=== PATIENT | male | born 1995 | race African-American/Black ===

== ENCOUNTER 2017-01-04 20:35 | Emergency (ER) | payer OTHER ==
[2017-01-04 21:00] VITALS: TEMP 96.9
[2017-01-04] MEDS ORDERED: IBUPROFEN 800 MG TAB PO STA (22:30)
[2017-01-04] MEDS ORDERED: SENNOSIDES-DOCUSATE SODIUM 1 EACH TAB PO STA (22:30)
[2017-01-04] MEDS ORDERED: DICYCLOMINE 10 MG/ML 2 ML AMP IM STA (22:30)
[2017-01-04] MEDS ORDERED: GLYCERIN ADULT SUPPOSITORY 1 EACH RECTAL STA (22:30)
[2017-01-04] MEDS ORDERED: MAGNESIUM CITRATE 296 ML BOTTLE PO ONE (22:30)
--- NOTE | 2017-01-04 22:50 | ED ---
General Adult HPI - General Chief complaint: Abdominal Pain Stated complaint: med reaction/comstipation/back pain Time Seen by Provider: 01/04/17 22:24 Source: patient, RN notes reviewed, old records reviewed Mode of arrival: ambulatory Limitations: no limitations - History of Present Illness Initial comments: This is a 21-year-old male ER for evaluation I am bowel pain flank pain epigastric abdominal pain. No nausea or vomiting. No diarrhea, bubble reassuringly history of constipation. Patient is uncemented psychiatric medications. Has a bowel movements. Usually has issues with constipation. Is on no bowel regimen at this time - Related Data Home Medications Medication Instructions Recorded Confirmed FLUoxetine HCL [PROzac] 10 mg PO DAILY 02/07/16 01/04/17 FLUoxetine HCL [PROzac] 20 mg PO DAILY 02/07/16 01/04/17 LORazepam [Ativan] 0.5 mg PO HS 02/07/16 01/04/17 LORazepam [Ativan] 0.5 mg PO QAM 02/07/16 01/04/17 Loratadine 10 mg PO DAILY 02/07/16 01/04/17 cloNIDine HCL [Catapres] 0.1 mg PO HS 02/07/16 01/04/17 guanFACINE HCL [Intuniv] 1 mg PO BID 02/07/16 01/04/17 risperiDONE 0.25 mg PO 01/04/17 Allergies Allergy/AdvReac Type Severity Reaction Status Date / Time No Known Allergies Allergy Verified 02/07/16 11:03 Review of Systems ROS Statement: Those systems with pertinent positive or pertinent negative responses have been documented in the HPI. ROS Other: All systems not noted in ROS Statement are negative. Past Medical History Additional Past Medical History / Comment(s): CP, developmentally delayed History of Any Multi-Drug Resistant Organisms: Unobtainable Past Surgical History: Unable to Obtain Past Psychological History: Unable to Obtain Smoking Status: Unknown if ever smoked Past Alcohol Use History: Unable to Obtain Past Drug Use History: Unable to Obtain General Exam Limitations: no limitations General appearance: alert, in no apparent distress Head exam: Present: atraumatic, normocephalic, normal inspection Eye exam: Present: normal appearance, PERRL, EOMI. Absent: scleral icterus, conjunctival injection, periorbital swelling ENT exam: Present: normal exam, mucous membranes moist Neck exam: Present: normal inspection. Absent: tenderness, meningismus, lymphadenopathy Respiratory exam: Present: normal lung sounds bilaterally. Absent: respiratory distress, wheezes, rales, rhonchi, stridor Cardiovascular Exam: Present: regular rate, normal rhythm, normal heart sounds. Absent: systolic murmur, diastolic murmur, rubs, gallop, clicks GI/Abdominal exam: Present: soft, normal bowel sounds. Absent: distended, tenderness, guarding, rebound, rigid Extremities exam: Present: normal inspection, full ROM, normal capillary refill. Absent: tenderness, pedal edema, joint swelling, calf tenderness Back exam: Present: normal inspection Neurological exam: Present: alert, oriented X3, CN II-XII intact Psychiatric exam: Present: normal affect, normal mood Skin exam: Present: warm, dry, intact, normal color. Absent: rash Course Vital Signs 01/04/17 20:56 Temperature 96.9 F L Pulse Rate 67 Respiratory 18 Rate Blood Pressure 111/63 O2 Sat by Pulse 100 Oximetry - Reevaluation(s) Reevaluation #1: 01/04/17 22:49 Patient given adequate follow regimen, no acute distress, no abdominal tenderness Medical Decision Making - Medical Decision Making 21 middle ear with extensive stool Berdan, constipation, will discharge all with bowel regimen - Radiology Data Radiology results: report reviewed (X-ray abdominal series with chest, negative) , image reviewed Disposition Clinical Impression: Constipation, Abdominal pain Disposition: HOME SELF-CARE Condition: Good Instructions: Constipation (ED) Referrals: Sandoval Murphy MD [Primary Care Provider] - 1-2 days
--- NOTE | 2017-01-04 23:09 | XR ---
EXAM: XR Abdomen Complete With XR Chest CLINICAL HISTORY: Reason: LT side ABD pain and constipation. Last bowel movement was yesterday. TECHNIQUE: Frontal view of the chest, frontal view of the abdomen/pelvis and upright view of the abdomen. COMPARISON: None available FINDINGS: Lungs/pleura: Normal. No focal consolidation. No pleural effusion or pneumothorax. Heart/mediastinum: Normal. No cardiomegaly. Soft tissues: Presumed phlebolith projected over the left pelvis. Bones: No acute fracture. Abdomen: Nonobstructive bowel gas pattern. Moderate stool, most prominent in the right colon and transverse colon. Stomach is also distended with ingested material. No free air. IMPRESSION: 1. No acute cardiopulmonary abnormality. 2. Moderate stool, predominantly in the right colon and transverse colon. Nonobstructive bowel gas pattern. No free air.
[2017-01-04 23:32] VITALS: BP 99/55; PULSE 77; RESP 16
== END 2017-01-04 23:31 | disposition home or self-care (01) ==
LOC: EC 20:35
DX: R10.13 Epigastric pain (principal); K59.00 Constipation, unspecified; Z79.899 Other long term (current) drug therapy
CPT/HCPCS: 99284; 96372; 74022; J0500

== ENCOUNTER 2017-01-24 18:44 | Emergency (ER) | payer OTHER ==
[2017-01-24] MEDS ORDERED: DOCUSATE 283 MG/5 ML ENEMA RECTAL STA (19:14)
[2017-01-24] MEDS ORDERED: MAGNESIUM CITRATE 296 ML BOTTLE PO ONE (19:15)
--- NOTE | 2017-01-24 19:30 | ED ---
Abdominal Pain HPI - General Chief Complaint: Abdominal Pain Stated Complaint: constipation Time Seen by Provider: 01/24/17 19:08 Source: patient, RN notes reviewed, old records reviewed Mode of arrival: ambulatory Limitations: no limitations - History of Present Illness Initial Comments: this is a 21-year-old male presents emergency Department chief complaint constipation. Patient reports that he has not had a normal bowel movement in over a month. He was seen in the emergency department on 86 and given an enema at that time. Patient reports that since then he has not had very many bowel movements. Patient states that he is been trying to use MiraLAX but he is discontinue using it was not helping. Patient states that he does live at [facility]. He has a history of cerebral palsy, denies a specific fever or chills or of vomiting. Patient states that he has no specific abdominal pain but his abdomen feels very hard. Patient states no history of abdominal surgeries. - Related Data Home Medications Medication Instructions Recorded Confirmed FLUoxetine HCL [PROzac] 30 mg PO QAM@0800 01/04/17 01/24/17 LORazepam [Ativan] 0.5 mg PO BID@0800,2100 01/04/17 01/24/17 cloNIDine HCL [Catapres] 0.2 mg PO HS@2100 01/04/17 01/24/17 guanFACINE [Tenex] 1 mg PO BID@0800,1400 01/04/17 01/24/17 risperiDONE [RisperDAL] 2 mg PO BID@0800,2100 01/04/17 01/24/17 Allergies Allergy/AdvReac Type Severity Reaction Status Date / Time No Known Allergies Allergy Verified 01/24/17 19:43 Review of Systems ROS Statement: Those systems with pertinent positive or pertinent negative responses have been documented in the HPI. ROS Other: All systems not noted in ROS Statement are negative. Past Medical History Additional Past Medical History / Comment(s): CP, developmentally delayed History of Any Multi-Drug Resistant Organisms: None Reported Past Surgical History: Unable to Obtain Past Psychological History: No Psychological Hx Reported Smoking Status: Never smoker Past Alcohol Use History: None Reported Past Drug Use History: None Reported General Exam - General Exam Comments Initial Comments: well-appearing 21-year-old male. No acute distress. Limitations: no limitations General appearance: alert, in no apparent distress Head exam: Present: atraumatic, normocephalic, normal inspection Eye exam: Present: normal appearance, PERRL, EOMI. Absent: scleral icterus, conjunctival injection, periorbital swelling ENT exam: Present: normal exam, mucous membranes moist Neck exam: Present: normal inspection. Absent: tenderness, meningismus, lymphadenopathy Respiratory exam: Present: normal lung sounds bilaterally. Absent: respiratory distress, wheezes, rales, rhonchi, stridor Cardiovascular Exam: Present: regular rate, normal rhythm, normal heart sounds. Absent: systolic murmur, diastolic murmur, rubs, gallop, clicks GI/Abdominal exam: Present: soft, normal bowel sounds. Absent: distended, guarding, rebound, rigid Extremities exam: Present: normal inspection, full ROM, normal capillary refill. Absent: tenderness, pedal edema, joint swelling, calf tenderness Back exam: Present: normal inspection, full ROM Neurological exam: Present: alert, oriented X3, CN II-XII intact Psychiatric exam: Present: normal affect, normal mood Skin exam: Present: warm, dry, intact, normal color. Absent: rash Course Vital Signs 01/24/17 19:04 Temperature 98.2 F Pulse Rate 108 H Respiratory 20 Rate Blood Pressure 145/74 O2 Sat by Pulse 96 Oximetry Medical Decision Making - Medical Decision Making 21-year-old male chief complaint of constipation patient reports he has not had a bowel movement in one month. Patient's x-rays show significant stool burn. No specific abdominal tenderness. Patient will be given an soap sudsenema. Patient will be discharged home afterwards.patient be given a bottle magnesium citrate to go home with for further episode of constipation. - Radiology Data Radiology results: report reviewed Nonobstructive bowel gas pattern with moderate amount of retained colonic stool and gastric stasis. Disposition Clinical Impression: Constipation Disposition: HOME SELF-CARE Condition: Good Instructions: Constipation in Children (ED) Additional Instructions: patient instructed take the magnesium citrate bottle is negative for further episodes of constipation. Follow-up with your primary care provider regards to frequent episodes of constipation. Patient is have a diet high in fiber, and increase her fluid intake. Return to the emergency department if any alarming signs or symptoms occur. Referrals: Sandoval Murphy MD [Primary Care Provider] - 1-2 days Time of Disposition: 19:45
--- NOTE | 2017-01-24 19:41 | XR ---
EXAMINATION TYPE: XR abdomen 2V DATE OF EXAM: 01/24/2017 COMPARISON: NONE HISTORY: Constipation and abdominal pain TECHNIQUE: Upright and supine abdominal radiographs were obtained. FINDINGS: No evidence of pneumoperitoneum on the upright exam. No air-fluid levels are seen within th e upright exam. Stomach is distended with evidence of gastrectasis. Moderate amount of retained stool is seen throughout the colon. Colon is nondilated nor small bowel. There is a slight S-shaped scolio tic curvature of the thoracolumbar spine. IMPRESSION: 1. Nonobstructive bowel gas pattern with moderate amount of retained colonic stool and gastrectasis.
[2017-01-24 20:07] VITALS: BP 139/72; PULSE 92; RESP 18; TEMP 98.7
== END 2017-01-24 20:22 | disposition home or self-care (01) ==
LOC: EC 18:44
DX: K59.00 Constipation, unspecified (principal); Z79.899 Other long term (current) drug therapy
CPT/HCPCS: 74020; 99284

== ENCOUNTER 2017-03-24 15:27 | Emergency (ER) | payer OTHER ==
--- NOTE | 2017-03-24 16:00 | ED ---
General Adult HPI - General Chief complaint: Extremity Problem,Nontraumatic Stated complaint: Leg Pain Time Seen by Provider: 03/24/17 15:52 Source: patient, RN notes reviewed Mode of arrival: ambulatory Limitations: no limitations - History of Present Illness Initial comments: 21-year-old male presents to the emergency department with a chief complaint of right leg pain. Patient states that his leg chronically on the outside of the right leg. Worse with walking. Patient states he saw his doctor about a few years ago in the never had anything about it. They state that he was concerned because he continues pains without maybe we could find out why. He denies any calf pain. Denies any swelling. He is able to ambulate. Worse when he puts a lot of pressure his heel. There were concerned due to the continued symptoms so they thought they should be evaluated.Patient denies any recent fever, chills , shortness of breath, chest pain, back pain, abdominal pain, nausea vomiting, numbness or tingling, dysuria or hematuria, constipation or diarrhea, headaches or visual changes, or any other current symptoms. - Related Data Home Medications Medication Instructions Recorded Confirmed LORazepam [Ativan] 0.5 mg PO BID@0800,2100 01/04/17 03/24/17 cloNIDine HCL [Catapres] 0.2 mg PO HS@2100 01/04/17 03/24/17 guanFACINE [Tenex] 1 mg PO BID@0800,1400 01/04/17 03/24/17 risperiDONE [RisperDAL] 2 mg PO BID@0800,2100 01/04/17 03/24/17 FLUoxetine HCL [PROzac] 20 mg PO QAM@0800 01/24/17 03/24/17 Allergies Allergy/AdvReac Type Severity Reaction Status Date / Time No Known Allergies Allergy Verified 03/24/17 15:32 Review of Systems ROS Statement: Those systems with pertinent positive or pertinent negative responses have been documented in the HPI. ROS Other: All systems not noted in ROS Statement are negative. Past Medical History Additional Past Medical History / Comment(s): CP, developmentally delayed History of Any Multi-Drug Resistant Organisms: None Reported Past Surgical History: Unable to Obtain Past Psychological History: No Psychological Hx Reported Smoking Status: Never smoker Past Alcohol Use History: None Reported Past Drug Use History: None Reported General Exam - General Exam Comments Initial Comments: General: The patient is awake and alert, in no distress, and does not appear acutely ill. Neck: The neck is supple, there is no tenderness. Cardiovascular: There is a regular rate and rhythm. No murmur, rub or gallop is appreciated. Respiratory: Lungs are clear to auscultation, respirations are non-labored, breath sounds are equal. No wheezes, stridor, rales, or rhonchi. Musculoskeletal: sensation intact full Range of motion of right hip right knee and right ankle. Patient does have some tenderness along the lateral aspect of the right leg. Frontal motion of right knee and right ankle. No swelling negative Homans sign. 2+ pulses. Neurological: CN II-XII intact, There are no obvious motor or sensory deficits. Coordination appears grossly intact. Speech is normal. Skin: Skin is warm and dry and no rashes or lesions are noted. Psychiatric: Normal mood and affect. Limitations: no limitations Course Vital Signs 03/24/17 15:29 Temperature 98.1 F Pulse Rate 85 Respiratory 20 Rate Blood Pressure 112/72 O2 Sat by Pulse 99 Oximetry Medical Decision Making - Medical Decision Making 19-year-old male presents emergency room chief complaint of right leg pain. This time patient's x-rays reviewed and negative. We discussed most likely muscle type pain. We did discuss care of this. Discussed follow-up return parameters all his questions. They state Qamar is given plan. All questions have been answered. He'll be discharged. - Radiology Data Radiology results: report reviewed, image reviewed Disposition Clinical Impression: Right leg pain Disposition: HOME SELF-CARE Condition: Stable Instructions: Leg Pain (ED) Additional Instructions: Please use medication as discussed. Please follow up with family doctor if symptoms have not improved over the next two days. Please return to the emergency room if your symptoms increase or worsen or for any other concerns. use Tylenol for the pain as needed. Referrals: Estevan Tijerina MD [STAFF PHYSICIAN] - 1-2 days Time of Disposition: 16:41
--- NOTE | 2017-03-24 16:26 | XR ---
EXAMINATION TYPE: XR tibia fibula RT DATE OF EXAM: 03/24/2017 COMPARISON: NONE HISTORY: Pain TECHNIQUE: 2 view right tibia and fibula FINDINGS: No acute fractures are evident. Joint spaces appear preserved. There is some mild thickenin g of the cortex of the medial distal diaphyseal fibula. 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 IMPRESSION: 1. No acute osseous abnormality.
[2017-03-24 16:54] VITALS: BP 130/60; PULSE 80; RESP 18; TEMP 98.2
== END 2017-03-24 16:53 | disposition home or self-care (01) ==
LOC: EC 15:27
DX: M79.601 Pain in right arm (principal); Z79.899 Other long term (current) drug therapy
CPT/HCPCS: 99283

== ENCOUNTER 2017-06-06 03:58 | Emergency (ER) | payer OTHER ==
[2017-06-06] MEDS ORDERED: LORazepam 1 MG TAB PO STA (04:03)
[2017-06-06] MEDS ORDERED: diphenhydrAMINE 25 MG CAP PO STA (04:03)
[2017-06-06] MEDS ORDERED: ONDANSETRON 4 MG TAB PO STA (04:03)
[2017-06-06 04:14] VITALS: BP 153/89; PULSE 98; RESP 19; TEMP 99.1
--- NOTE | 2017-06-06 05:20 | ED ---
General Adult HPI - General Chief complaint: Dizziness Stated complaint: muscle tremors Time Seen by Provider: 06/06/17 04:00 Source: EMS, RN notes reviewed, old records reviewed Mode of arrival: EMS Limitations: no limitations - History of Present Illness Initial comments: This is a 19-year-old male to the ER for evaluation. Patient is ER for evaluation of possible overdose of Extenzel injection of medication. Patient did stop a gas station takes extends medication 2. Dosage and boxes 1, patient did not drink any water with this. Patient denies any other complaints. States he's been uncontrollable shaking. Denies any pain - Related Data Home Medications Medication Instructions Recorded Confirmed LORazepam [Ativan] 0.5 mg PO BID@0800,2100 01/04/17 05/27/17 cloNIDine HCL [Catapres] 0.2 mg PO HS@2100 01/04/17 05/27/17 guanFACINE [Tenex] 1 mg PO DAILY@1400 01/04/17 05/27/17 risperiDONE [RisperDAL] 2 mg PO BID@0800,2100 01/04/17 05/27/17 FLUoxetine HCL [PROzac] 20 mg PO QAM@0800 01/24/17 05/27/17 Ergocalciferol [Vitamin D2] 50,000 unit PO Q14D 05/27/17 05/27/17 FLUoxetine HCL [PROzac] 10 mg PO QAM@0800 05/27/17 05/27/17 Multivitamins, Thera [Multivitamin 1 tab PO QAM 05/27/17 05/27/17 (formulary)] Polyethylene Glycol 3350 [Miralax] 17 gm PO DAILY@1400 05/27/17 05/27/17 guanFACINE [Tenex] 2 mg PO DAILY@0800 05/27/17 05/27/17 Allergies Allergy/AdvReac Type Severity Reaction Status Date / Time No Known Allergies Allergy Verified 05/27/17 23:26 Review of Systems ROS Statement: Those systems with pertinent positive or pertinent negative responses have been documented in the HPI. ROS Other: All systems not noted in ROS Statement are negative. Past Medical History Additional Past Medical History / Comment(s): CP, developmentally delayed History of Any Multi-Drug Resistant Organisms: None Reported Past Surgical History: Unable to Obtain Past Psychological History: No Psychological Hx Reported Smoking Status: Never smoker Past Alcohol Use History: None Reported Past Drug Use History: None Reported General Exam Limitations: no limitations General appearance: alert, in no apparent distress, anxious Head exam: Present: atraumatic, normocephalic, normal inspection Eye exam: Present: normal appearance, PERRL, EOMI. Absent: scleral icterus, conjunctival injection, periorbital swelling ENT exam: Present: normal exam, mucous membranes moist Neck exam: Present: normal inspection. Absent: tenderness, meningismus, lymphadenopathy Respiratory exam: Present: normal lung sounds bilaterally. Absent: respiratory distress, wheezes, rales, rhonchi, stridor Cardiovascular Exam: Present: regular rate, normal rhythm, normal heart sounds. Absent: systolic murmur, diastolic murmur, rubs, gallop, clicks GI/Abdominal exam: Present: soft, normal bowel sounds. Absent: distended, tenderness, guarding, rebound, rigid Extremities exam: Present: normal inspection, full ROM, normal capillary refill. Absent: tenderness, pedal edema, joint swelling, calf tenderness Back exam: Present: normal inspection Neurological exam: Present: alert, oriented X3, CN II-XII intact Psychiatric exam: Present: normal affect, normal mood Skin exam: Present: warm, dry, intact, normal color. Absent: rash Course Vital Signs 06/06/17 04:03 Temperature 99.1 F Pulse Rate 98 Respiratory 19 Rate Blood Pressure 153/89 O2 Sat by Pulse 95 Oximetry - Reevaluation(s) Reevaluation #1: 06/06/17 05:19 Patient's symptoms are much improved Medical Decision Making - Medical Decision Making 21 male to ER with accidental medication ingestion, patient to as opposed to one extends medications. Patient was shaking upon arrival to ER this time his symptoms are resolving can be discharged home Disposition Clinical Impression: Accidental medication overdose Disposition: HOME SELF-CARE Condition: Good Instructions: Adult Overdose (ED) Referrals: None,Stated [Primary Care Provider] - 1-2 days
== END 2017-06-06 06:07 | disposition home or self-care (01) ==
LOC: EC 03:58
DX: T50.991A Poisoning by other drugs, medicaments and biological substances, accidental (unintentional), initial encounter (principal); R42 Dizziness and giddiness; R25.1 Tremor, unspecified; Z79.899 Other long term (current) drug therapy
CPT/HCPCS: 99284

== ENCOUNTER 2017-08-17 20:22 | Emergency (ER) | payer OTHER ==
--- NOTE | 2017-08-17 21:00 | ED ---
Psych HPI - General Chief Complaint: Psychiatric Symptoms Stated Complaint: mental health? Time Seen by Provider: 08/17/17 20:45 Source: patient, RN notes reviewed Mode of arrival: ambulatory - History of Present Illness Initial Comments: This is a 21-year-old male who presents to the emergency department for mental health evaluation. Patient states that he is having suicidal ideation with plans to cut himself. He also reports homicidal ideation against his uncle. Patient denies any visual or auditory hallucinations. He denies alcohol or drug use. Patient reports a history of cerebral palsy and back pain. Denies any recent illnesses. Denies fever, chills, chest pain, shortness of breath, abdominal pain, nausea or vomiting, constipation or diarrhea, dysuria or hematuria, numbness or tingling, headache or vision changes. - Related Data Home Medications Medication Instructions Recorded Confirmed LORazepam [Ativan] 0.5 mg PO BID 01/04/17 08/17/17 cloNIDine HCL [Catapres] 0.2 mg PO HS 01/04/17 08/17/17 risperiDONE [RisperDAL] 2 mg PO BID 01/04/17 08/17/17 FLUoxetine HCL [PROzac] 20 mg PO DAILY 01/24/17 08/17/17 Ergocalciferol [Vitamin D2] 50,000 unit PO Q14D 05/27/17 08/17/17 FLUoxetine HCL [PROzac] 10 mg PO DAILY 05/27/17 08/17/17 Multivitamins, Thera [Multivitamin 1 tab PO DAILY 05/27/17 08/17/17 (formulary)] Polyethylene Glycol 3350 [Miralax] 17 gm PO Q48H 05/27/17 08/17/17 Desmopressin [Ddavp] 0.2 mg PO HS 08/17/17 08/17/17 Docusate [Colace] 100 mg PO DAILY 08/17/17 08/17/17 Loratadine [Claritin] 10 mg PO DAILY 08/17/17 08/17/17 Montelukast [Singulair] 10 mg PO HS 08/17/17 08/17/17 guanFACINE HCL [Tenex] 2 mg PO BID@0800,1400 08/17/17 08/17/17 predniSONE 20 mg PO DAILY 08/17/17 08/17/17 Allergies Allergy/AdvReac Type Severity Reaction Status Date / Time No Known Allergies Allergy Verified 08/17/17 21:10 Review of Systems ROS Statement: Those systems with pertinent positive or pertinent negative responses have been documented in the HPI. ROS Other: All systems not noted in ROS Statement are negative. Past Medical History Additional Past Medical History / Comment(s): CP, developmentally delayed History of Any Multi-Drug Resistant Organisms: None Reported Past Surgical History: No Surgical Hx Reported Past Psychological History: Depression Smoking Status: Never smoker Past Alcohol Use History: None Reported Past Drug Use History: None Reported General Exam - General Exam Comments Initial Comments: General: Awake and alert, well-developed; in no apparent distress. HEENT: Head atraumatic, normocephalic. Pupils are equal, round and reactive to light. Extraocular movements intact. Oropharynx moist without erythema or exudate. Neck: Supple. Normal ROM. Cardiovascular: Regular rate and rhythm. No murmurs, rubs or gallops. Chest symmetrical. Respiratory: Lungs clear to auscultation bilaterally. No wheezes, rales or rhonchi. Normal respiratory effort with no use of accessory muscles. Musculoskeletal: Normal ROM, no tenderness bilateral upper and lower extremities. Ambulating normally. Skin: [place], warm and dry without rashes or lesions. Neurological: Alert and oriented x3. CN II-XII grossly intact. No focal neuro deficits. Psychiatric: Flat affect. Monotone voice. Melancholic. Limitations: no limitations Course Vital Signs 08/17/17 20:37 Temperature 97.9 F Pulse Rate 71 Respiratory 20 Rate Blood Pressure 127/69 O2 Sat by Pulse 100 Oximetry - Reevaluation(s) Reevaluation #1: I spoke with patient's [facility] worker. He states that prior to patient arriving to the emergency department he was talking with him on the telephone. He states that patient was very angry and did not want to go home. He states that patient presented to the emergency department for a place to sleep. The [facility] worker is not here to evaluate the patient, he states he is here to speak with him. EPS will be contacted for formal evaluation. 08/17/17 21:36 Medical Decision Making - Medical Decision Making This is a 21-year-old male who presents to the emergency department for mental health evaluation. Urine drug screen was negative for any illicit drugs. It was positive for benzos, however these are listed as home medications. BAT was negative. Patient was evaluated by EPS nurse, Johana. She has recommended discharge home with outpatient follow-up to [facility]. Patient lives with his aunt. Both are comfortable with return home. Patient is in no acute distress and will be discharged home. - Lab Data Lab Results 08/17/17 Range/Units 21:30 Urine Opiates Screen Not Detected (NotDetected) Ur Oxycodone Screen Not Detected (NotDetected) Urine Methadone Screen Not Detected (NotDetected) Ur Propoxyphene Screen Not Detected (NotDetected) Ur Barbiturates Screen Not Detected (NotDetected) U Tricyclic Antidepress Not Detected (NotDetected) Ur Phencyclidine Scrn Not Detected (NotDetected) Ur Amphetamines Screen Not Detected (NotDetected) U Methamphetamines Scrn Not Detected (NotDetected) U Benzodiazepines Scrn Detected H (NotDetected) Urine Cocaine Screen Not Detected (NotDetected) U Marijuana (THC) Screen Not Detected (NotDetected) Disposition Clinical Impression: Depression, Suicidal ideation Disposition: HOME SELF-CARE Condition: Good Instructions: Depression (ED), Suicide Prevention for Adults (ED) Additional Instructions: Please follow up with [facility] within the next couple of days. Please follow up with primary care provider within 1-2 days. Return to emergency department if symptoms should worsen or any concerns arise. Referrals: None,Stated [Primary Care Provider] - 1-2 days Time of Disposition: 23:13
[2017-08-17 21:53] LABS: Amphetamine Screen,Urine Not Detected (NotDetected); Barbiturate Screen,Urine Not Detected (NotDetected); Benzodiazepines Screen,Urine Detected (NotDetected); Cocaine Screen,Urine Not Detected (NotDetected); Methadone Screen, Urine Not Detected (NotDetected); Opiate Screen,Urine Not Detected (NotDetected); Oxycodone Screen, Urine Not Detected (NotDetected); Phencyclidine Screen,Urine Not Detected (NotDetected); Tricyclic Antidepressant,Urine Not Detected (NotDetected); Urn Cannabinoid Scrn Not Detected (NotDetected)
[2017-08-17 23:18] VITALS: BP 123/65; PULSE 65; RESP 16; TEMP 98.2
== END 2017-08-17 23:26 | disposition home or self-care (01) ==
LOC: EC 20:22
DX: F32.9 Major depressive disorder, single episode, unspecified (principal); R45.851 Suicidal ideations; Z79.52 Long term (current) use of systemic steroids; Z79.899 Other long term (current) drug therapy
CPT/HCPCS: 80306; 82075; 99285

== ENCOUNTER 2017-12-30 18:27 | Emergency (ER) | payer OTHER ==
[2017-12-30] MEDS ORDERED: SODIUM CHLORIDE 0.9% 500 ML IV STA (19:28)
--- NOTE | 2017-12-30 19:36 | ED ---
Abdominal Pain HPI - General Chief Complaint: Abdominal Pain Stated Complaint: Constipated Time Seen by Provider: 12/30/17 19:04 Source: patient Mode of arrival: ambulatory Limitations: no limitations - History of Present Illness Initial Comments: 22-year-old male patient presents the emergency department today for evaluation of lower abdominal pain. He states that his pain has been present since yesterday after he received a Haldol shot. He describes the pain as aching and cramping. States he was nauseated and did vomit one time. Feels constipated, but did have a bowel movement today. Patient states that he had the injection and an additional injection to help him from getting side effects from the Haldol. Patient states that also since then he has been feeling very weak and tired. States he is unable to go up the stairs in his legs don't seem to be working properly. Patient is also reporting frequency of urination, denies any dysuria, hematuria, or urinary urgency. States he is sexually active but denies any concerns for STDs. He denies any penile drainage or testicular discomfort. Denies any fevers or chills. Patient denies any recent rash, shortness breath, chest pain, abdominal pain, nausea, vomiting, diarrhea, constipation, back pain, numbness, tingling, headache, visual changes, or any other complaints. - Related Data Home Medications Medication Instructions Recorded Confirmed LORazepam [Ativan] 0.5 mg PO BID 01/04/17 12/30/17 cloNIDine HCL [Catapres] 0.2 mg PO HS 01/04/17 12/30/17 risperiDONE [RisperDAL] 2 mg PO BID 01/04/17 12/30/17 FLUoxetine HCL [PROzac] 20 mg PO DAILY 01/24/17 12/30/17 Ergocalciferol [Vitamin D2] 50,000 unit PO Q14D 05/27/17 12/30/17 FLUoxetine HCL [PROzac] 10 mg PO DAILY 05/27/17 12/30/17 Multivitamins, Thera [Multivitamin 1 tab PO DAILY 05/27/17 12/30/17 (formulary)] Polyethylene Glycol 3350 [Miralax] 17 gm PO Q48H 05/27/17 12/30/17 Desmopressin [Ddavp] 0.2 mg PO HS 08/17/17 12/30/17 Docusate [Colace] 100 mg PO DAILY 08/17/17 12/30/17 Loratadine [Claritin] 10 mg PO DAILY 08/17/17 12/30/17 Montelukast [Singulair] 10 mg PO HS 08/17/17 12/30/17 guanFACINE HCL [Tenex] 2 mg PO BID@0800,1400 08/17/17 12/30/17 predniSONE 20 mg PO DAILY 08/17/17 12/30/17 Haloperidol [Haldol] 5 mg PO ONCE 12/30/17 12/30/17 Previous Rx's Medication Instructions Recorded Ibuprofen [Motrin] 600 mg PO Q8HR PRN #30 tab 12/30/17 Tamsulosin HCl [Flomax] 0.4 mg PO DAILY #7 cap 12/30/17 Allergies Allergy/AdvReac Type Severity Reaction Status Date / Time No Known Allergies Allergy Verified 12/30/17 18:38 Review of Systems ROS Statement: Those systems with pertinent positive or pertinent negative responses have been documented in the HPI. ROS Other: All systems not noted in ROS Statement are negative. Past Medical History Past Medical History: No Reported History Additional Past Medical History / Comment(s): CP, developmentally delayed History of Any Multi-Drug Resistant Organisms: None Reported Past Surgical History: No Surgical Hx Reported Past Psychological History: Depression Smoking Status: Never smoker Past Alcohol Use History: None Reported Past Drug Use History: None Reported General Exam Limitations: no limitations General appearance: alert, in no apparent distress, other (This is a well- developed, well-nourished adult male patient in no acute distress. Vital signs upon presentation are temperature 99.5F, pulse 125, respirations 18, blood pressure 132/88, pulse ox 96% on room air.) Eye exam: Present: normal appearance, PERRL, EOMI. Absent: scleral icterus, conjunctival injection, periorbital swelling ENT exam: Present: normal exam, normal oropharynx, mucous membranes moist Respiratory exam: Present: normal lung sounds bilaterally. Absent: respiratory distress, wheezes, rales, rhonchi, stridor Cardiovascular Exam: Present: regular rate, normal rhythm, normal heart sounds. Absent: systolic murmur, diastolic murmur, rubs, gallop, clicks GI/Abdominal exam: Present: soft, tenderness (Left lower quadrant and suprapubic tenderness), normal bowel sounds. Absent: distended, guarding, rebound, rigid Extremities exam: Present: normal inspection, full ROM, normal capillary refill. Absent: tenderness, pedal edema, joint swelling, calf tenderness Back exam: Present: normal inspection Neurological exam: Present: alert, oriented X3, CN II-XII intact, other (lower extremity strength 4/5) Psychiatric exam: Present: normal affect, normal mood Skin exam: Present: warm, dry, intact, normal color. Absent: rash Course Vital Signs 12/30/17 18:35 Temperature 99.5 F Pulse Rate 125 H Respiratory 18 Rate Blood Pressure 132/88 O2 Sat by Pulse 96 Oximetry Medical Decision Making - Medical Decision Making 22-year-old male patient presented to the emergency department today for evaluation of lower abdominal pain and side effects from his Haldol injection. Physical examination did reveal lower abdominal tenderness. Labs reviewed and revealed a mildly elevated white blood cell count. KUB x-ray showed overall nonobstructive bowel gas pattern with a normal fecal pattern. Given patient's labs and symptoms we did perform CT abdomen and pelvis which showed right-sided hydronephrosis and a 3 mm stone. Patient be treated for kidney stone. Other symptoms are felt to be related to Haldol side effects, he is instructed to follow-up with his prescribing physician for this and let them know he is having side effects. He'll be given Flomax ibuprofen for pain control. We did discuss plan of care with his legal guardian. They verbalize understanding and agree with this plan. - Lab Data Result diagrams: 12/30/17 20:00 12/30/17 20:00 Lab Results 12/30/17 12/30/17 12/30/17 Range/Units 20:00 20:00 20:20 WBC 12.6 H (3.8-10.6) k/uL RBC 4.49 (4.30-5.90) m/uL Hgb 11.9 L (13.0-17.5) gm/dL Hct 36.8 L (39.0-53.0) % MCV 81.9 (80.0-100.0) fL MCH 26.4 (25.0-35.0) pg MCHC 32.3 (31.0-37.0) g/dL RDW 14.2 (11.5-15.5) % Plt Count 250 (150-450) k/uL Neutrophils % 80 % Lymphocytes % 10 % Monocytes % 7 % Eosinophils % 1 % Basophils % 0 % Neutrophils # 10.1 H (1.3-7.7) k/uL Lymphocytes # 1.3 (1.0-4.8) k/uL Monocytes # 0.9 (0-1.0) k/uL Eosinophils # 0.2 (0-0.7) k/uL Basophils # 0.0 (0-0.2) k/uL Sodium 139 (137-145) mmol/L Potassium 4.6 (3.5-5.1) mmol/L Chloride 100 (98-107) mmol/L Carbon Dioxide 32 H (22-30) mmol/L Anion Gap 7 mmol/L BUN 18 (9-20) mg/dL Creatinine 0.99 (0.66-1.25) mg/dL Est GFR (CKD-EPI)AfAm >90 (>60 ml/min/1.73 sqM) Est GFR (CKD-EPI)NonAf >90 (>60 ml/min/1.73 sqM) Glucose 84 (74-99) mg/dL Calcium 9.6 (8.4-10.2) mg/dL Total Bilirubin 0.4 (0.2-1.3) mg/dL AST 92 H (17-59) U/L ALT 117 H (21-72) U/L Alkaline Phosphatase 44 (38-126) U/L Total Protein 6.4 (6.3-8.2) g/dL Albumin 3.8 (3.5-5.0) g/dL Amylase 61 (30-110) U/L Lipase 30 (23-300) U/L Urine Color Yellow Urine Appearance Clear (Clear) Urine pH 7.5 (5.0-8.0) Ur Specific [place] 1.013 (1.001-1.035) Urine Protein Negative (Negative) Urine Glucose (UA) Negative (Negative) Urine Ketones Negative (Negative) Urine Blood Negative (Negative) Urine Nitrite Negative (Negative) Urine Bilirubin Negative (Negative) Urine Urobilinogen <2.0 (<2.0) mg/dL Ur Leukocyte Esterase Negative (Negative) - Radiology Data Radiology results: report reviewed, image reviewed CT of the abdomen and pelvis with contrast was obtained. Report was reviewed in its entirety. Impression by Dr. Shipley shows mild right-sided hydronephrosis. Distal right ureteral calculus is possible. Normal appendix. KUB x-ray of the abdomen is obtained. There is no sign of intestinal structure pneumoperitoneum. Fecal pattern is normal. There is no evidence of a mass. Lung bases are clear. There are no pathological secretions over the kidneys. Impression by Dr. Shipley shows nonacute abdomen with no change. Disposition Clinical Impression: Kidney stone on right side Disposition: HOME SELF-CARE Condition: Good Instructions: Kidney Stones (ED) Additional Instructions: Take medications as directed. Follow-up with your primary care physician for recheck in 1-2 days. Follow-up with urologist for further evaluation. Return here immediately for any new, worsening, or concerning symptoms. Prescriptions: Ibuprofen [Motrin] 600 mg PO Q8HR PRN #30 tab PRN Reason: Pain Tamsulosin HCl [Flomax] 0.4 mg PO DAILY #7 cap Is patient prescribed a controlled substance at d/c from ED?: No Referrals: [facility] [Primary Care Provider] - 1-2 days Bc Friedman MD [STAFF PHYSICIAN] - 1-2 days Time of Disposition: 22:07
[2017-12-30 20:18] LABS: ALT 117 U/L (21-72); AST 92 U/L (17-59); Albumin 3.8 g/dL (3.5-5.0); Alkaline Phosphatase 44 U/L (38-126); Amylase 61 U/L (30-110); Anion Gap 7 mmol/L; Blood Urea Nitrogen 18 mg/dL (9-20); Calcium 9.6 mg/dL (8.4-10.2); Carbon Dioxide 32 mmol/L (22-30); Chloride 100 mmol/L (98-107); Glucose 84 mg/dL (74-99); Lipase 30 U/L (23-300); Potassium 4.6 mmol/L (3.5-5.1); Sodium 139 mmol/L (137-145); Total Bilirubin 0.4 mg/dL (0.2-1.3); Total Protein 6.4 g/dL (6.3-8.2)
[2017-12-30 20:30] LABS: Basophils % (A) 0 %; Eosinophils # (A) 0.2 k/uL (0-0.7); Eosinophils % (A) 1 %; HCT 36.8 % (39.0-53.0); HGB 11.9 gm/dL (13.0-17.5); Lymphocytes # (A) 1.3 k/uL (1.0-4.8); Lymphocytes % (A) 10 %; MCH 26.4 pg (25.0-35.0); MCHC 32.3 g/dL (31.0-37.0); MCV 81.9 fL (80.0-100.0); Mean Platelet Volume 6.9; Monocytes # (A) 0.9 k/uL (0-1.0); Monocytes % (A) 7 %; Neutrophils # (A) 10.1 k/uL (1.3-7.7); Neutrophils % (A) 80 %; Platelet Count 250 k/uL (150-450); RBC 4.49 m/uL (4.30-5.90); RDW 14.2 % (11.5-15.5); WBC 12.6 k/uL (3.8-10.6)
[2017-12-30 20:34] LABS: Appearance,Urine Clear (Clear); Bilirubin,Urine Negative (Negative); Blood,Urine Negative (Negative); Color,Urine Yellow; Glucose,Urine (UA) Negative (Negative); Ketones,Urine Negative (Negative); Leukocyte Esterase,Urine Negative (Negative); Nitrite,Urine Negative (Negative); PH, Urine 7.5 (5.0-8.0); Protein,Urine Negative (Negative); Specific Gravity,Urine 1.013 (1.001-1.035); Urobilinogen,Urine <2.0 mg/dL (<2.0)
--- NOTE | 2017-12-30 20:43 | XR ---
EXAMINATION TYPE: XR KUB DATE OF EXAM: 12/30/2017 COMPARISON: 05/27/2017 HISTORY: Abdominal pain TECHNIQUE: Single view FINDINGS: There is no sign of intestinal obstruction or pneumoperitoneum. Fecal pattern is normal. Th ere is no evidence of a mass. Lung bases are clear. There are no pathologic calcifications over the k idneys. IMPRESSION: Nonacute abdomen. No change.
--- NOTE | 2017-12-30 21:37 | CT ---
EXAMINATION TYPE: CT abdomen pelvis w con DATE OF EXAM: 12/30/2017 COMPARISON: None HISTORY: Abdominal pain and constipation. CT DLP: 614.4 mGycm Automated exposure control for dose reduction was used. TECHNIQUE: Helical acquisition of images was performed from the lung bases through the pelvis. CONTRAST: Performed without Oral Contrast and with IV Contrast, patient injected with 100ml mL of Isovue 300. FINDINGS: There is some infiltrate at the left lung base. There is no pleural effusion. Heart size is normal. Liver spleen pancreas gallbladder appear normal. Gallbladder is contracted. Bile ducts are not dilate d. There is no adrenal mass. Kidneys show satisfactory contrast opacification. There is some fullness of the right renal collecting system. There is no retroperitoneal adenopathy. I see no intestinal wa ll thickening. There are no dilated loops. Appendix appears normal. Bladder distends smoothly. There is 3 mm calcification in the pelvis on the right side on image 78. Bony structures are intact. IMPRESSION: MILD RIGHT-SIDED HYDRONEPHROSIS. DISTAL RIGHT URETERAL CALCULUS IS POSSIBLE. NORMAL APPENDIX.
[2017-12-30] MEDS ORDERED: IBUPROFEN 600 MG TAB PO STA (22:11)
[2017-12-30] MEDS ORDERED: TAMSULOSIN 0.4 MG CAP.ER.24H PO STA (22:11)
[2017-12-30 23:08] VITALS: BP 145/65; PULSE 78; RESP 20; TEMP 98.3
== END 2017-12-30 23:00 | disposition home or self-care (01) ==
LOC: EC 18:27
DX: N13.2 Hydronephrosis with renal and ureteral calculous obstruction (principal); D72.829 Elevated white blood cell count, unspecified; F32.9 Major depressive disorder, single episode, unspecified; Z79.52 Long term (current) use of systemic steroids; Z79.899 Other long term (current) drug therapy
CPT/HCPCS: 36415; 80053; 82150; 83690; 85025; 81003; 87491; 87591; 74018; 74177; 99284; Q9967

== ENCOUNTER 2017-12-31 21:57 | Emergency (ER) | payer OTHER ==
[2017-12-31 22:36] VITALS: TEMP 97.9
[2017-12-31] MEDS ORDERED: ONDANSETRON ODT 4 MG TAB PO STA (23:04)
[2018-01-01 00:05] LABS: Basophils % (A) 0 %; Eosinophils # (A) 0.3 k/uL (0-0.7); Eosinophils % (A) 2 %; HCT 36.8 % (39.0-53.0); HGB 11.7 gm/dL (13.0-17.5); Lymphocytes # (A) 1.5 k/uL (1.0-4.8); Lymphocytes % (A) 12 %; MCH 26.1 pg (25.0-35.0); MCHC 31.8 g/dL (31.0-37.0); MCV 82.1 fL (80.0-100.0); Monocytes # (A) 0.8 k/uL (0-1.0); Monocytes % (A) 7 %; Neutrophils # (A) 9.1 k/uL (1.3-7.7); Neutrophils % (A) 77 %; Platelet Count 250 k/uL (150-450); RBC 4.48 m/uL (4.30-5.90); RDW 14.1 % (11.5-15.5); WBC 11.9 k/uL (3.8-10.6)
--- NOTE | 2018-01-01 00:12 | ED ---
Psych HPI - General Chief Complaint: Psychiatric Symptoms Stated Complaint: Mental Health Time Seen by Provider: 12/31/17 22:26 Source: patient Mode of arrival: ambulatory - History of Present Illness Initial Comments: This patient is 22-year-old man who is a resident of [facility]. The patient was sent here today after he was reportedly acting up at the [facility]. When I interview the patient, he denies any complaints, other than stating that his left upper arm is a little tender at the site where he had 2 injections weeks ago. The patient states that he had alerted profanity and then the staff there had started an argument with him. He denies being homicidal or having any suicidal ideation. MD Complaint: other -: hour(s) Associated Psychiatric Symptoms: none History of same: Yes Quality: intermittent Improves With: none Worsens With: none Associated Symptoms: denies other symptoms - Related Data Home Medications Medication Instructions Recorded Confirmed LORazepam [Ativan] 0.5 mg PO BID 01/04/17 12/31/17 cloNIDine HCL [Catapres] 0.2 mg PO HS 01/04/17 12/31/17 risperiDONE [RisperDAL] 2 mg PO BID 01/04/17 12/31/17 FLUoxetine HCL [PROzac] 20 mg PO DAILY 01/24/17 12/31/17 Ergocalciferol [Vitamin D2] 50,000 unit PO Q14D 05/27/17 12/31/17 FLUoxetine HCL [PROzac] 10 mg PO DAILY 05/27/17 12/31/17 Multivitamins, Thera [Multivitamin 1 tab PO DAILY 05/27/17 12/31/17 (formulary)] Polyethylene Glycol 3350 [Miralax] 17 gm PO Q48H 05/27/17 12/31/17 Desmopressin [Ddavp] 0.2 mg PO HS 08/17/17 12/31/17 Docusate [Colace] 100 mg PO DAILY 08/17/17 12/31/17 Loratadine [Claritin] 10 mg PO DAILY 08/17/17 12/31/17 Montelukast [Singulair] 10 mg PO HS 08/17/17 12/31/17 guanFACINE HCL [Tenex] 2 mg PO BID@0800,1400 08/17/17 12/31/17 predniSONE 20 mg PO DAILY 08/17/17 12/31/17 Haloperidol [Haldol] 5 mg PO ONCE 12/30/17 12/31/17 Previous Rx's Medication Instructions Recorded Ibuprofen [Motrin] 600 mg PO Q8HR PRN #30 tab 12/30/17 Tamsulosin HCl [Flomax] 0.4 mg PO DAILY #7 cap 12/30/17 Allergies Allergy/AdvReac Type Severity Reaction Status Date / Time No Known Allergies Allergy Verified 12/31/17 22:36 Review of Systems ROS Statement: Those systems with pertinent positive or pertinent negative responses have been documented in the HPI. ROS Other: All systems not noted in ROS Statement are negative. Constitutional: Denies: fever, chills Respiratory: Denies: cough, dyspnea Cardiovascular: Denies: chest pain, palpitations, edema Gastrointestinal: Denies: abdominal pain, nausea, vomiting Genitourinary: Denies: urgency, dysuria, frequency, hematuria Musculoskeletal: Denies: back pain Skin: Denies: rash Neurological: Denies: headache, weakness, numbness Psychiatric: Denies: homicidal thoughts, suicidal thoughts Past Medical History Past Medical History: No Reported History Additional Past Medical History / Comment(s): CP, developmentally delayed, kidney stones History of Any Multi-Drug Resistant Organisms: None Reported Past Surgical History: No Surgical Hx Reported Past Psychological History: Anxiety, Depression Smoking Status: Never smoker Past Alcohol Use History: None Reported Past Drug Use History: None Reported General Exam Limitations: physical limitation General appearance: alert, in no apparent distress Head exam: Present: atraumatic, normocephalic Eye exam: Present: normal appearance ENT exam: Present: normal oropharynx Respiratory exam: Present: normal lung sounds bilaterally. Absent: respiratory distress, wheezes, rales, rhonchi, stridor Cardiovascular Exam: Present: regular rate, normal rhythm, normal heart sounds. Absent: systolic murmur, diastolic murmur, rubs, gallop GI/Abdominal exam: Present: soft. Absent: tenderness, guarding, rebound Extremities exam: Absent: pedal edema Neurological exam: Present: alert, normal gait. Absent: motor sensory deficit Psychiatric exam: Absent: agitated, manic, homicidal ideation, suicidal ideation Skin exam: Present: warm, dry, intact, normal color. Absent: rash Course Vital Signs 08/03/18 08/04/18 22:32 01:31 Temperature 97.9 F Pulse Rate 112 H 99 Respiratory 20 17 Rate Blood Pressure 121/77 128/65 O2 Sat by Pulse 97 97 Oximetry Medical Decision Making - Medical Decision Making Given the patient's complaint at the injection site, did provide ultrasound to ensure that there is no abscess forming. - Lab Data Result diagrams: 12/31/17 23:58 12/31/17 23:58 Lab Results 12/31/17 12/31/17 Range/Units 23:58 23:58 WBC 11.9 H (3.8-10.6) k/uL RBC 4.48 (4.30-5.90) m/uL Hgb 11.7 L (13.0-17.5) gm/dL Hct 36.8 L (39.0-53.0) % MCV 82.1 (80.0-100.0) fL MCH 26.1 (25.0-35.0) pg MCHC 31.8 (31.0-37.0) g/dL RDW 14.1 (11.5-15.5) % Plt Count 250 (150-450) k/uL Neutrophils % 77 % Lymphocytes % 12 % Monocytes % 7 % Eosinophils % 2 % Basophils % 0 % Neutrophils # 9.1 H (1.3-7.7) k/uL Lymphocytes # 1.5 (1.0-4.8) k/uL Monocytes # 0.8 (0-1.0) k/uL Eosinophils # 0.3 (0-0.7) k/uL Basophils # 0.0 (0-0.2) k/uL ESR 24 H (0-15) mm/hr Sodium 139 (137-145) mmol/L Potassium 4.4 (3.5-5.1) mmol/L Chloride 104 (98-107) mmol/L Carbon Dioxide 27 (22-30) mmol/L Anion Gap 8 mmol/L BUN 15 (9-20) mg/dL Creatinine 0.80 (0.66-1.25) mg/dL Est GFR (CKD-EPI)AfAm >90 (>60 ml/min/1.73 sqM) Est GFR (CKD-EPI)NonAf >90 (>60 ml/min/1.73 sqM) Glucose 107 H (74-99) mg/dL Calcium 9.9 (8.4-10.2) mg/dL Disposition Clinical Impression: Acute anxiety Disposition: HOME SELF-CARE Condition: Good Instructions: Mood Disorders (ED) Is patient prescribed a controlled substance at d/c from ED?: No Referrals: None,Stated [Primary Care Provider] - 1-2 days
[2018-01-01 00:17] LABS: Anion Gap 8 mmol/L; Blood Urea Nitrogen 15 mg/dL (9-20); Calcium 9.9 mg/dL (8.4-10.2); Carbon Dioxide 27 mmol/L (22-30); Chloride 104 mmol/L (98-107); Glucose 107 mg/dL (74-99); Potassium 4.4 mmol/L (3.5-5.1); Sodium 139 mmol/L (137-145)
[2018-01-01 01:02] LABS: Erythrocyte Sedimentation Rate 24 mm/hr (0-15)
[2018-01-01 01:32] VITALS: BP 128/65; PULSE 99; RESP 17
--- NOTE | 2018-01-01 01:57 | US ---
EXAMINATION TYPE: US extremity nonvasculr ltd LT DATE OF EXAM: 01/01/2018 COMPARISON: NONE CLINICAL HISTORY: Pain at injection site L deltoid. ER Doctor concerned for abscess or drainable jane ection. Scanned patient's area of pain, left deltoid area from injection, no specific abnormality noted. IMPRESSION: Left shoulder was scanned in the area of concern and no discrete solid or cystic mass id entified.
== END 2018-01-01 02:45 | disposition home or self-care (01) ==
LOC: EC 21:57
DX: F41.9 Anxiety disorder, unspecified (principal); R29.898 Other symptoms and signs involving the musculoskeletal system; F32.9 Major depressive disorder, single episode, unspecified; Z79.52 Long term (current) use of systemic steroids; Z79.899 Other long term (current) drug therapy
CPT/HCPCS: 36415; 80048; 82075; 85025; 85652; 99284

== ENCOUNTER 2018-01-02 11:53 | Emergency (ER) | payer OTHER ==
[2018-01-02 12:10] VITALS: BP 131/85; PULSE 117; RESP 18; TEMP 98.3
--- NOTE | 2018-01-02 12:21 | ED ---
General Adult HPI - General Chief complaint: Psychiatric Symptoms Stated complaint: med problem Time Seen by Provider: 01/02/18 12:09 Source: patient, RN notes reviewed Mode of arrival: ambulatory Limitations: language barrier (developmentally delayed) - History of Present Illness Initial comments: This is a 22-year-old male who presents to the emergency department with chief complaint of medication issue. Patient states that he lives at the [facility]. He states that he is a public guardian. Patient states that today at the [facility] they dispensed his medications at the incorrect time. He states he does not have his public guardian's phone number to contact them for them to change his times back to normal. Patient states that he can take his pain medication at any time but needs to take his psych meds at a specific time. He states that they changed the times that the medications are dispensed without him knowing. Patient denies any suicidal or homicidal ideation. Denies fever, chills, chest pain, shortness of breath, abdominal pain, nausea or vomiting. - Related Data Home Medications Medication Instructions Recorded Confirmed LORazepam [Ativan] 0.5 mg PO BID 01/04/17 12/31/17 cloNIDine HCL [Catapres] 0.2 mg PO HS 01/04/17 12/31/17 risperiDONE [RisperDAL] 2 mg PO BID 01/04/17 12/31/17 FLUoxetine HCL [PROzac] 20 mg PO DAILY 01/24/17 12/31/17 Ergocalciferol [Vitamin D2] 50,000 unit PO Q14D 05/27/17 12/31/17 FLUoxetine HCL [PROzac] 10 mg PO DAILY 05/27/17 12/31/17 Multivitamins, Thera [Multivitamin 1 tab PO DAILY 05/27/17 12/31/17 (formulary)] Polyethylene Glycol 3350 [Miralax] 17 gm PO Q48H 05/27/17 12/31/17 Desmopressin [Ddavp] 0.2 mg PO HS 08/17/17 12/31/17 Docusate [Colace] 100 mg PO DAILY 08/17/17 12/31/17 Loratadine [Claritin] 10 mg PO DAILY 08/17/17 12/31/17 Montelukast [Singulair] 10 mg PO HS 08/17/17 12/31/17 guanFACINE HCL [Tenex] 2 mg PO BID@0800,1400 08/17/17 12/31/17 predniSONE 20 mg PO DAILY 08/17/17 12/31/17 Haloperidol [Haldol] 5 mg PO ONCE 12/30/17 12/31/17 Previous Rx's Medication Instructions Recorded Ibuprofen [Motrin] 600 mg PO Q8HR PRN #30 tab 12/30/17 Tamsulosin HCl [Flomax] 0.4 mg PO DAILY #7 cap 12/30/17 Allergies Allergy/AdvReac Type Severity Reaction Status Date / Time No Known Allergies Allergy Verified 01/02/18 12:05 Review of Systems ROS Statement: Those systems with pertinent positive or pertinent negative responses have been documented in the HPI. ROS Other: All systems not noted in ROS Statement are negative. Past Medical History Past Medical History: No Reported History Additional Past Medical History / Comment(s): CP, developmentally delayed, kidney stones History of Any Multi-Drug Resistant Organisms: None Reported Past Surgical History: No Surgical Hx Reported Past Psychological History: Anxiety, Depression Smoking Status: Never smoker Past Alcohol Use History: None Reported Past Drug Use History: None Reported General Exam - General Exam Comments Initial Comments: General: Awake and alert, well-developed; in no apparent distress. Patient is developmentally delayed. HEENT: Head atraumatic, normocephalic. Pupils are equal, round and reactive to light. Extraocular movements intact. Oropharynx moist without erythema or exudate. Neck: Supple. Normal ROM. Cardiovascular: Regular rate and rhythm. No murmurs, rubs or gallops. Chest symmetrical. Respiratory: Lungs clear to auscultation bilaterally. No wheezes, rales or rhonchi. Normal respiratory effort with no use of accessory muscles. Musculoskeletal: Normal ROM, no tenderness bilateral upper and lower extremities. Ambulating normally. Skin: [place], warm and dry without rashes or lesions. Neurological: Alert and oriented x3. CN II-XII grossly intact. Stuttering speech. No focal neuro deficits. Psychiatric: Normal mood and affect. No overt signs of depression or anxiety noted. Limitations: no limitations Course Vital Signs 01/02/18 11:58 Temperature 98.3 F Pulse Rate 117 H Respiratory 18 Rate Blood Pressure 131/85 O2 Sat by Pulse 97 Oximetry Medical Decision Making - Medical Decision Making This is a 22-year-old male presents to the emergency department with chief complaint of med issue. Patient reports that he has had his medications dispensed at incorrect times. He presents to the emergency department with request for us to contact his public guardian to have the times switched back. He reports that there is an hour difference in the times. Patient's guardian was contacted and said that the one hour difference is not going to make a difference and that patient can be discharged home. Vitals are stable and he is in no acute distress. He will be discharged at this time. He is in agreement. Disposition Clinical Impression: Encounter for medication review Disposition: HOME SELF-CARE Condition: Good Additional Instructions: Please continue taking medications as prescribed. Please follow up with primary care provider within 1-2 days. Return to emergency department if symptoms should worsen or any concerns arise. Is patient prescribed a controlled substance at d/c from ED?: No Referrals: [facility] [Primary Care Provider] - 1-2 days Time of Disposition: 12:36
== END 2018-01-02 12:46 | disposition home or self-care (01) ==
LOC: EC 11:53
DX: Z76.89 Persons encountering health services in other specified circumstances (principal); F41.9 Anxiety disorder, unspecified; F32.9 Major depressive disorder, single episode, unspecified; Z79.52 Long term (current) use of systemic steroids; Z79.899 Other long term (current) drug therapy
CPT/HCPCS: 99283

== ENCOUNTER 2018-04-08 22:54 | Emergency (ER) | payer OTHER ==
[2018-04-08 23:02] VITALS: BP 133/84; PULSE 106; TEMP 97.7
--- NOTE | 2018-04-08 23:22 | ED ---
General Adult HPI - General Chief complaint: Psychiatric Symptoms Stated complaint: petition Time Seen by Provider: 04/08/18 23:10 Source: patient, police, RN notes reviewed Mode of arrival: wheelchair Limitations: no limitations - History of Present Illness Initial comments: Patient is a pleasant 22-year-old male presenting to the emergency department with police escort for agitation. Patient admits to being angry with a staff member earlier. Patient did have thoughts of harming that person. Patient no longer has thoughts. Patient states he does have thoughts of stabbing himself with a fork. Patient admits that he frequently does have these thoughts. Patient admits to having occasional visual hallucinations that are chronic and unchanged. No physical complaints. No alcohol or street drug use. - Related Data Home Medications Medication Instructions Recorded Confirmed Ergocalciferol [Vitamin D2] 50,000 unit PO Q14D 05/27/17 04/08/18 Montelukast [Singulair] 10 mg PO HS 08/17/17 04/08/18 Divalproex ER [Depakote ER] 500 mg PO BID 04/08/18 04/08/18 Haloperidol [Haldol] 10 mg PO BID 04/08/18 04/08/18 OLANZapine 20 mg PO HS 04/08/18 04/08/18 Omeprazole 20 mg PO DAILY 04/08/18 04/08/18 chlorproMAZINE HCL [Thorazine] 200 mg PO TID 04/08/18 04/08/18 Previous Rx's Medication Instructions Recorded Ibuprofen [Motrin] 600 mg PO Q8HR PRN #30 tab 12/30/17 Tamsulosin HCl [Flomax] 0.4 mg PO DAILY #7 cap 12/30/17 Allergies Allergy/AdvReac Type Severity Reaction Status Date / Time No Known Allergies Allergy Verified 04/08/18 23:13 Review of Systems ROS Statement: Those systems with pertinent positive or pertinent negative responses have been documented in the HPI. ROS Other: All systems not noted in ROS Statement are negative. Constitutional: Denies: fever Eyes: Denies: eye pain ENT: Denies: ear pain Respiratory: Denies: cough Cardiovascular: Denies: chest pain Endocrine: Denies: fatigue Gastrointestinal: Denies: abdominal pain Genitourinary: Denies: dysuria Musculoskeletal: Denies: back pain Skin: Denies: rash Neurological: Denies: headache Psychiatric: Reports: visual hallucinations Past Medical History Past Medical History: No Reported History Additional Past Medical History / Comment(s): CP, developmentally delayed, kidney stones History of Any Multi-Drug Resistant Organisms: None Reported Past Surgical History: No Surgical Hx Reported Past Psychological History: Anxiety, Depression Smoking Status: Never smoker Past Alcohol Use History: None Reported Past Drug Use History: None Reported General Exam Limitations: no limitations General appearance: alert, in no apparent distress Head exam: Present: atraumatic Eye exam: Present: normal appearance, PERRL ENT exam: Present: normal oropharynx Neck exam: Present: normal inspection Respiratory exam: Present: normal lung sounds bilaterally Cardiovascular Exam: Present: regular rate, normal rhythm GI/Abdominal exam: Present: soft. Absent: tenderness Extremities exam: Present: normal inspection Neurological exam: Present: alert Psychiatric exam: Present: normal affect, normal mood Skin exam: Present: normal color Course Vital Signs 04/08/18 22:56 Temperature 97.7 F Pulse Rate 106 H Respiratory 20 Rate Blood Pressure 133/84 O2 Sat by Pulse 96 Oximetry Medical Decision Making - Medical Decision Making Patient was seen by mental health services with plan for discharge. Patient denies suicidal or homicidal thoughts and does contract for safety. Disposition Clinical Impression: Agitation Disposition: HOME SELF-CARE Condition: Stable Instructions: Mood Disorders (ED), Help Prevent Suicide (ED) Additional Instructions: Please follow-up with mental health services as directed. Please follow-up with primary care physician in the next couple of days for recheck. Return for thoughts of harming self or others, worsening symptoms or other concerns. Is patient prescribed a controlled substance at d/c from ED?: No Referrals: [facility] [Primary Care Provider] - 1-2 days Time of Disposition: 00:28
[2018-04-09 01:58] VITALS: RESP 17
== END 2018-04-09 01:09 | disposition home or self-care (01) ==
LOC: EC 22:54
DX: R45.1 Restlessness and agitation (principal); R44.1 Visual hallucinations; F32.9 Major depressive disorder, single episode, unspecified; Z79.899 Other long term (current) drug therapy
CPT/HCPCS: 82075; 99284

== ENCOUNTER 2019-02-20 15:30 | Emergency (ER) | payer OTHER ==
[2019-02-20 16:00] VITALS: BP 129/82; PULSE 83; RESP 18; TEMP 97.8
[2019-02-20 16:42] LABS: Appearance,Urine Clear (Clear); Bilirubin,Urine Negative (Negative); Blood,Urine Negative (Negative); Color,Urine Yellow; Glucose,Urine (UA) Negative (Negative); Ketones,Urine Negative (Negative); Leukocyte Esterase,Urine Negative (Negative); Nitrite,Urine Negative (Negative); Protein,Urine Trace (Negative); Specific Gravity,Urine 1.024 (1.001-1.035); Urobilinogen,Urine <2.0 mg/dL (<2.0)
[2019-02-20 16:52] LABS: Amphetamine Screen,Urine Not Detected (NotDetected); Barbiturate Screen,Urine Not Detected (NotDetected); Benzodiazepines Screen,Urine Not Detected (NotDetected); Cocaine Screen,Urine Not Detected (NotDetected); Methadone Screen, Urine Not Detected (NotDetected); Opiate Screen,Urine Not Detected (NotDetected); Oxycodone Screen, Urine Not Detected (NotDetected); Phencyclidine Screen,Urine Not Detected (NotDetected); Tricyclic Antidepressant,Urine Not Detected (NotDetected); Urn Cannabinoid Scrn Not Detected (NotDetected)
--- NOTE | 2019-02-20 17:42 | ED ---
General Adult HPI - General Chief complaint: Psychiatric Symptoms Stated complaint: EPS eval, diarrhea, hypertension, UTI Time Seen by Provider: 02/20/19 16:04 Source: patient, RN notes reviewed Mode of arrival: ambulatory Limitations: no limitations - History of Present Illness Initial comments: 23-year-old male with developmental delay, anxiety, depression presents to the emergency department for a chief complaint of suicidal thoughts. Patient states he was at his legal guardians and he did ask for money. States that the legal guardian refused and this made him upset and wanted to kill himself. Patient denies plan. Denies any active suicidal thoughts at this time. Patient apparently also has dysuria. No fevers or chills. No abdominal pain.Patient has no other complaints at this time including shortness of breath, chest pain, abdominal pain, nausea or vomiting, headache, or visual changes. - Related Data Home Medications Medication Instructions Recorded Confirmed Ergocalciferol [Vitamin D2] 50,000 unit PO Q14D 05/27/17 02/20/19 Montelukast [Singulair] 10 mg PO HS 08/17/17 02/20/19 Divalproex ER [Depakote ER] 1,000 mg PO HS 04/08/18 02/20/19 Haloperidol [Haldol] 10 mg PO BID 04/08/18 02/20/19 OLANZapine 20 mg PO HS 04/08/18 02/20/19 Omeprazole 20 mg PO DAILY 04/08/18 02/20/19 Albuterol Inhaler [Ventolin Hfa 1 - 2 puff INHALATION RT-Q6H PRN 02/20/19 02/20/19 Inhaler] Docusate [Colace] 100 mg PO DAILY 02/20/19 02/20/19 Fenofibrate 54 mg PO DAILY 02/20/19 02/20/19 Multivitamins, Thera [Multivitamin 1 tab PO DAILY 02/20/19 02/20/19 (formulary)] Polyethylene Glycol 3350 [Clearlax] 17 gm PO Q48H 02/20/19 02/20/19 Allergies Allergy/AdvReac Type Severity Reaction Status Date / Time No Known Allergies Allergy Verified 02/20/19 16:42 Review of Systems ROS Statement: Those systems with pertinent positive or pertinent negative responses have been documented in the HPI. ROS Other: All systems not noted in ROS Statement are negative. Past Medical History Past Medical History: No Reported History Additional Past Medical History / Comment(s): CP, developmentally delayed,kidney stones History of Any Multi-Drug Resistant Organisms: None Reported Past Surgical History: No Surgical Hx Reported Past Psychological History: Anxiety, Depression Smoking Status: Never smoker Past Alcohol Use History: None Reported Past Drug Use History: None Reported General Exam Limitations: no limitations General appearance: alert, in no apparent distress (Laying in bed watching TV, no distress) Head exam: Present: atraumatic, normocephalic, normal inspection Eye exam: Present: normal appearance, PERRL, EOMI. Absent: scleral icterus, conjunctival injection, periorbital swelling ENT exam: Present: normal exam, mucous membranes moist Neck exam: Present: normal inspection, full ROM. Absent: tenderness, meningismus, lymphadenopathy Respiratory exam: Present: normal lung sounds bilaterally. Absent: respiratory distress, wheezes, rales, rhonchi, stridor Cardiovascular Exam: Present: regular rate, normal rhythm, normal heart sounds. Absent: systolic murmur, diastolic murmur, rubs, gallop, clicks GI/Abdominal exam: Present: soft, normal bowel sounds. Absent: distended, tenderness, guarding, rebound, rigid Neurological exam: Present: alert Psychiatric exam: Present: normal affect, normal mood Course Vital Signs 02/20/19 15:57 Temperature 97.8 F Pulse Rate 83 Respiratory 18 Rate Blood Pressure 129/82 O2 Sat by Pulse 97 Oximetry Medical Decision Making - Medical Decision Making 23-year-old male presents to the emergency department for a chief complaint of suicidal thoughts. Patient has history of developmental delay, anxiety, depression. Patient was told he could not get money from his legal guardian to be Suicidal. However at This Time No Active Suicidal Thoughts. Patient also complaining of dysuria, urinalysis is well-appearing. Gonorrhea chlamydia pending. Patient resting comfortably watching TV. Patient was evaluated by EPS. Recommend outpatient care. He will return here if he has any worsening symptoms. - Lab Data Lab Results 02/20/19 Range/Units 15:28 Urine Color Yellow Urine Appearance Clear (Clear) Urine pH 6.0 (5.0-8.0) Ur Specific [place] 1.024 (1.001-1.035) Urine Protein Trace H (Negative) Urine Glucose (UA) Negative (Negative) Urine Ketones Negative (Negative) Urine Blood Negative (Negative) Urine Nitrite Negative (Negative) Urine Bilirubin Negative (Negative) Urine Urobilinogen <2.0 (<2.0) mg/dL Ur Leukocyte Esterase Negative (Negative) Urine Opiates Screen Not Detected (NotDetected) Ur Oxycodone Screen Not Detected (NotDetected) Urine Methadone Screen Not Detected (NotDetected) Ur Propoxyphene Screen Not Detected (NotDetected) Ur Barbiturates Screen Not Detected (NotDetected) U Tricyclic Antidepress Not Detected (NotDetected) Ur Phencyclidine Scrn Not Detected (NotDetected) Ur Amphetamines Screen Not Detected (NotDetected) U Methamphetamines Scrn Not Detected (NotDetected) U Benzodiazepines Scrn Not Detected (NotDetected) Urine Cocaine Screen Not Detected (NotDetected) U Marijuana (THC) Screen Not Detected (NotDetected) Disposition Clinical Impression: Situational depression Disposition: HOME SELF-CARE Condition: Good Instructions (If sedation given, give patient instructions): Depression (ED) Additional Instructions: Follow-up with primary care in 1-2 days. Please return to the emergency department if you have any worsening symptoms. Is patient prescribed a controlled substance at d/c from ED?: No Referrals: [facility] [Primary Care Provider] - 1-2 days Time of Disposition: 18:27
[2019-02-21 14:04] LABS: C. trachomatis,PCR Negative (Neg,Equiv); Chlamydia trachomatis Source Urine; N. gonorrhoeae,PCR Negative (Neg,Equiv); Neisseria Source Urine
== END 2019-02-20 19:44 | disposition home or self-care (01) ==
LOC: EC 15:30
DX: F43.21 Adjustment disorder with depressed mood (principal); Z79.899 Other long term (current) drug therapy
CPT/HCPCS: 80306; 81003; 82075; 87491; 87591; 99285

== ENCOUNTER 2019-06-03 00:29 | Emergency (ER) | payer OTHER ==
[2019-06-03 00:45] VITALS: PULSE 76; RESP 18
--- NOTE | 2019-06-03 01:50 | ED ---
Pediatric GI HPI - General Chief Complaint: Abdominal Pain Stated Complaint: Abdominal Pain Time Seen by Provider: 06/03/19 01:07 Source: patient Mode of arrival: ambulatory Limitations: no limitations - History of Present Illness Initial Comments: Patient is a pleasant 43-year-old gentleman with a history of developmental delay, patient resides in a detention. Patient was sent to the ER today for evaluation of possible abdominal pain though detention employees had a feeling that this was an emotional outburst due to him not getting what he wanted. Per the detention employees the patient was told to do something or go to bed and he didn't want to which time he began yelling that he had a stomachache and had a to the hospital. Patient had no vomiting and no complaints prior to this. Upon arrival patient reports that he felt good all day but he ate a lot of sausage and now has a tummy ache. He states he doesn't feel like he's going to throw up and he doesn't want to eat anything right now. - Related Data Home Medications Medication Instructions Recorded Confirmed Ergocalciferol [Vitamin D2] 50,000 unit PO Q14D 05/27/17 02/20/19 Montelukast [Singulair] 10 mg PO HS 08/17/17 02/20/19 Divalproex ER [Depakote ER] 1,000 mg PO HS 04/08/18 02/20/19 Haloperidol [Haldol] 10 mg PO BID 04/08/18 02/20/19 OLANZapine 20 mg PO HS 04/08/18 02/20/19 Omeprazole 20 mg PO DAILY 04/08/18 02/20/19 Albuterol Inhaler [Ventolin Hfa 1 - 2 puff INHALATION RT-Q6H PRN 02/20/19 02/20/19 Inhaler] Docusate [Colace] 100 mg PO DAILY 02/20/19 02/20/19 Fenofibrate 54 mg PO DAILY 02/20/19 02/20/19 Multivitamins, Thera [Multivitamin 1 tab PO DAILY 02/20/19 02/20/19 (formulary)] Polyethylene Glycol 3350 [Clearlax] 17 gm PO Q48H 02/20/19 02/20/19 Allergies Allergy/AdvReac Type Severity Reaction Status Date / Time No Known Allergies Allergy Verified 06/03/19 00:45 Review of Systems ROS Statement: Those systems with pertinent positive or pertinent negative responses have been documented in the HPI. ROS Other: All systems not noted in ROS Statement are negative. Past Medical History Past Medical History: No Reported History Additional Past Medical History / Comment(s): CP, developmentally delayed,kidney stones History of Any Multi-Drug Resistant Organisms: None Reported Past Surgical History: No Surgical Hx Reported Past Psychological History: Anxiety, Depression Smoking Status: Never smoker Past Alcohol Use History: None Reported Past Drug Use History: None Reported General Exam - General Exam Comments Initial Comments: Physical Exam GENERAL: Patient is well-developed and well-nourished. Patient is nontoxic and well-hydrated and is in no distress. The patient is laughing with staff and playing games on his phone in absolutely no distress HENT: Normocephalic, Atraumatic. EYES: PERRL, EOMI PULMONARY: Unlabored respirations. No audible rales rhonchi or wheezing was noted. CARDIOVASCULAR: There is a regular rate and rhythm without any murmurs gallops or rubs. ABDOMEN: Soft and nontender with normal bowel sounds. No discernible tenderness to deep palpation in all quadrants SKIN: Skin is clear with no lesions or rashes and otherwise unremarkable. : Deferred NEUROLOGIC: Alert and oriented to self able to identify he is in a hospital uncertain of date and knows that Ag just happened MUSCULOSKELETAL: Normal extremities with adequate strength and full range of motion. No lower extremity swelling or edema. No calf tenderness. PSYCHIATRIC: At baseline for patient Limitations: no limitations Course Vital Signs 06/03/19 06/03/19 00:43 03:30 Temperature 97.9 F 97 F L Pulse Rate 76 76 Respiratory 18 18 Rate Blood Pressure 140/88 122/77 O2 Sat by Pulse 100 97 Oximetry Medical Decision Making - Medical Decision Making Patient was seen and evaluated history was obtained from patient, EMS and detention. On arrival patient is in no acute distress not complaining of any pain. Abdomen is soft nontender he has no history of any abdominal pathology. Labs were unremarkable. Patient was pleasant throughout his ER stay at this time is stable for discharge back to detention. - Lab Data Result diagrams: 06/03/19 02:35 06/03/19 02:35 Lab Results 06/03/19 06/03/19 06/03/19 Range/Units 02:35 02:35 03:05 WBC 6.7 (3.8-10.6) k/uL RBC 5.53 (4.30-5.90) m/uL Hgb 14.5 (13.0-17.5) gm/dL Hct 45.3 (39.0-53.0) % MCV 81.8 (80.0-100.0) fL MCH 26.3 (25.0-35.0) pg MCHC 32.1 (31.0-37.0) g/dL RDW 13.5 (11.5-15.5) % Plt Count 239 (150-450) k/uL Neutrophils % 50 % Lymphocytes % 39 % Monocytes % 8 % Eosinophils % 0 % Basophils % 0 % Neutrophils # 3.3 (1.3-7.7) k/uL Lymphocytes # 2.6 (1.0-4.8) k/uL Monocytes # 0.5 (0-1.0) k/uL Eosinophils # 0.0 (0-0.7) k/uL Basophils # 0.0 (0-0.2) k/uL Sodium 140 (137-145) mmol/L Potassium 4.5 (3.5-5.1) mmol/L Chloride 105 (98-107) mmol/L Carbon Dioxide 27 (22-30) mmol/L Anion Gap 8 mmol/L BUN 13 (9-20) mg/dL Creatinine 1.06 (0.66-1.25) mg/dL Est GFR (CKD-EPI)AfAm >90 (>60 ml/min/1.73 sqM) Est GFR (CKD-EPI)NonAf >90 (>60 ml/min/1.73 sqM) Glucose 119 H (74-99) mg/dL Calcium 10.3 H (8.4-10.2) mg/dL Total Bilirubin 0.3 (0.2-1.3) mg/dL AST 34 (17-59) U/L ALT 33 (4-49) U/L Alkaline Phosphatase 72 (38-126) U/L Total Protein 7.4 (6.3-8.2) g/dL Albumin 4.2 (3.5-5.0) g/dL Urine Color Yellow Urine Appearance Clear (Clear) Urine pH 7.5 (5.0-8.0) Ur Specific [place] 1.018 (1.001-1.035) Urine Protein Negative (Negative) Urine Glucose (UA) Negative (Negative) Urine Ketones Negative (Negative) Urine Blood Negative (Negative) Urine Nitrite Negative (Negative) Urine Bilirubin Negative (Negative) Urine Urobilinogen <2.0 (<2.0) mg/dL Ur Leukocyte Esterase Negative (Negative) Disposition Clinical Impression: Abdominal pain Disposition: HOME SELF-CARE Condition: Stable Instructions (If sedation given, give patient instructions): Abdominal Pain (ED) Is patient prescribed a controlled substance at d/c from ED?: No Referrals: [facility] [Primary Care Provider] - 1-2 days
[2019-06-03 02:55] LABS: Basophils % (A) 0 %; Eosinophils % (A) 0 %; HCT 45.3 % (39.0-53.0); HGB 14.5 gm/dL (13.0-17.5); Lymphocytes # (A) 2.6 k/uL (1.0-4.8); Lymphocytes % (A) 39 %; MCH 26.3 pg (25.0-35.0); MCHC 32.1 g/dL (31.0-37.0); MCV 81.8 fL (80.0-100.0); Mean Platelet Volume 7.9; Monocytes # (A) 0.5 k/uL (0-1.0); Monocytes % (A) 8 %; Neutrophils # (A) 3.3 k/uL (1.3-7.7); Neutrophils % (A) 50 %; Platelet Count 239 k/uL (150-450); RBC 5.53 m/uL (4.30-5.90); RDW 13.5 % (11.5-15.5); WBC 6.7 k/uL (3.8-10.6)
[2019-06-03 03:06] LABS: ALT 33 U/L (4-49); AST 34 U/L (17-59); African American GFR (CKD) >90 (>60 ml/min/1.73 sqM); Albumin 4.2 g/dL (3.5-5.0); Alkaline Phosphatase 72 U/L (38-126); Anion Gap 8 mmol/L; Blood Urea Nitrogen 13 mg/dL (9-20); Calcium 10.3 mg/dL (8.4-10.2); Carbon Dioxide 27 mmol/L (22-30); Chloride 105 mmol/L (98-107); Glucose 119 mg/dL (74-99); Non-African American GFR(CKD) >90 (>60 ml/min/1.73 sqM); Potassium 4.5 mmol/L (3.5-5.1); Sodium 140 mmol/L (137-145); Total Bilirubin 0.3 mg/dL (0.2-1.3); Total Protein 7.4 g/dL (6.3-8.2)
[2019-06-03 03:11] LABS: Appearance,Urine Clear (Clear); Bilirubin,Urine Negative (Negative); Blood,Urine Negative (Negative); Color,Urine Yellow; Glucose,Urine (UA) Negative (Negative); Ketones,Urine Negative (Negative); Leukocyte Esterase,Urine Negative (Negative); Nitrite,Urine Negative (Negative); PH, Urine 7.5 (5.0-8.0); Protein,Urine Negative (Negative); Specific Gravity,Urine 1.018 (1.001-1.035); Urobilinogen,Urine <2.0 mg/dL (<2.0)
[2019-06-03 03:32] VITALS: BP 122/77; TEMP 97
== END 2019-06-03 03:36 | disposition home or self-care (01) ==
LOC: EC 00:29
DX: R10.9 Unspecified abdominal pain (principal); Z79.899 Other long term (current) drug therapy
CPT/HCPCS: 36415; 80053; 81003; 85025; 99284

== ENCOUNTER 2019-07-27 13:54 | Emergency (ER) | payer OTHER ==
[2019-07-27 14:02] VITALS: RESP 18
--- NOTE | 2019-07-27 14:24 | ED ---
General Adult HPI - General Chief complaint: Psychiatric Symptoms Stated complaint: mental health Time Seen by Provider: 07/27/19 14:03 Source: patient, police, RN notes reviewed Mode of arrival: ambulatory Limitations: no limitations - History of Present Illness Initial comments: 23-year-old male with a past medical history of cerebral palsy, developmental delay depression, anxiety presents to the emergency department for suicidal thoughts. Patient states he is angry at his guardian. States he tried to call his guardian 6 times in the back of a call back. Patient presents with police with petition. Patient states because he is angry at his guardian he feels suicidal with a plan to stab himself. However as patient states that he is smiling with a positive affect. Patient has no other complaints at this time including shortness of breath, chest pain, abdominal pain, nausea or vomiting, headache, or visual changes. - Related Data Home Medications Medication Instructions Recorded Confirmed Ergocalciferol [Vitamin D2] 50,000 unit PO Q14D 05/27/17 02/20/19 Montelukast [Singulair] 10 mg PO HS 08/17/17 02/20/19 Divalproex ER [Depakote ER] 1,000 mg PO HS 04/08/18 02/20/19 Haloperidol [Haldol] 10 mg PO BID 04/08/18 02/20/19 OLANZapine 20 mg PO HS 04/08/18 02/20/19 Omeprazole 20 mg PO DAILY 04/08/18 02/20/19 Albuterol Inhaler [Ventolin Hfa 1 - 2 puff INHALATION RT-Q6H PRN 02/20/19 02/20/19 Inhaler] Docusate [Colace] 100 mg PO DAILY 02/20/19 02/20/19 Fenofibrate 54 mg PO DAILY 02/20/19 02/20/19 Multivitamins, Thera [Multivitamin 1 tab PO DAILY 02/20/19 02/20/19 (formulary)] Polyethylene Glycol 3350 [Clearlax] 17 gm PO Q48H 02/20/19 02/20/19 Allergies Allergy/AdvReac Type Severity Reaction Status Date / Time No Known Allergies Allergy Verified 06/03/19 00:45 Review of Systems ROS Statement: Those systems with pertinent positive or pertinent negative responses have been documented in the HPI. ROS Other: All systems not noted in ROS Statement are negative. Past Medical History Past Medical History: No Reported History Additional Past Medical History / Comment(s): CP, developmentally delayed,kidney stones History of Any Multi-Drug Resistant Organisms: None Reported Past Surgical History: No Surgical Hx Reported Past Psychological History: Anxiety, Depression Smoking Status: Never smoker Past Alcohol Use History: None Reported Past Drug Use History: None Reported General Exam Limitations: no limitations General appearance: alert (Smiling, cooperative), in no apparent distress Head exam: Present: atraumatic, normocephalic, normal inspection Eye exam: Present: normal appearance, PERRL, EOMI. Absent: scleral icterus, co njunctival injection, periorbital swelling ENT exam: Present: normal exam, mucous membranes moist Neck exam: Present: normal inspection. Absent: tenderness, meningismus, lymphadenopathy Respiratory exam: Present: normal lung sounds bilaterally. Absent: respiratory distress, wheezes, rales, rhonchi, stridor Cardiovascular Exam: Present: regular rate, normal rhythm, normal heart sounds. Absent: systolic murmur, diastolic murmur, rubs, gallop, clicks Neurological exam: Present: alert, oriented X3, normal gait Psychiatric exam: Present: normal affect, normal mood Course Vital Signs 07/27/19 13:56 Temperature 98.3 F Pulse Rate 82 Respiratory 18 Rate Blood Pressure 148/82 O2 Sat by Pulse 97 Oximetry Medical Decision Making - Medical Decision Making 23-year-old well-appearing male presents for suicidal thoughts. Patient is angry at his guardian and this is why he is suicidal. Patient has presented for similar complaints of suicidal thoughts with anger before. Patient states he is aware he has a "short fuse". Patient is cooperative with a positive affect on my exam. He was evaluated by EPS. They have cleared patient to go home. I reevaluated patient and he is denying any suicidal thoughts, stating he feels much better. CT plan in place. Patient will return for any worsening symptoms.I discussed this case with attending Dr. Tran who agrees with this assessment and treatment plan. - Lab Data Lab Results 07/27/19 Range/Units 14:10 Urine Opiates Screen Not Detected (NotDetected) Ur Oxycodone Screen Not Detected (NotDetected) Urine Methadone Screen Not Detected (NotDetected) Ur Propoxyphene Screen Not Detected (NotDetected) Ur Barbiturates Screen Not Detected (NotDetected) U Tricyclic Antidepress Not Detected (NotDetected) Ur Phencyclidine Scrn Not Detected (NotDetected) Ur Amphetamines Screen Not Detected (NotDetected) U Methamphetamines Scrn Not Detected (NotDetected) U Benzodiazepines Scrn Not Detected (NotDetected) Urine Cocaine Screen Not Detected (NotDetected) U Marijuana (THC) Screen Not Detected (NotDetected) Disposition Clinical Impression: Situational disturbance Disposition: HOME SELF-CARE Condition: Good Instructions (If sedation given, give patient instructions): Depression (ED) Additional Instructions: Please follow up with primary care in 1-2 days. If you develop any worsening symptoms return to the emergency department. Is patient prescribed a controlled substance at d/c from ED?: No Referrals: Sandoval Murphy MD [REFERRING] - 1-2 days Time of Disposition: 16:14
[2019-07-27 14:45] LABS: Amphetamine Screen,Urine Not Detected (NotDetected); Barbiturate Screen,Urine Not Detected (NotDetected); Benzodiazepines Screen,Urine Not Detected (NotDetected); Cocaine Screen,Urine Not Detected (NotDetected); Methadone Screen, Urine Not Detected (NotDetected); Opiate Screen,Urine Not Detected (NotDetected); Oxycodone Screen, Urine Not Detected (NotDetected); Phencyclidine Screen,Urine Not Detected (NotDetected); Tricyclic Antidepressant,Urine Not Detected (NotDetected); Urn Cannabinoid Scrn Not Detected (NotDetected)
[2019-07-27 16:17] VITALS: BP 138/78; PULSE 89; TEMP 97.9
== END 2019-07-27 16:28 | disposition home or self-care (01) ==
LOC: EC 13:54
DX: F43.20 Adjustment disorder, unspecified (principal); F41.9 Anxiety disorder, unspecified; F32.9 Major depressive disorder, single episode, unspecified; G80.9 Cerebral palsy, unspecified; Z79.899 Other long term (current) drug therapy
CPT/HCPCS: 80306; 82075; 99285

== ENCOUNTER 2019-08-08 19:23 | Emergency (ER) | payer OTHER ==
[2019-08-08 19:42] VITALS: BP 133/85; PULSE 84; RESP 18; TEMP 98.4
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
[2019-08-08 22:48] LABS: Amphetamine Screen,Urine Not Detected (NotDetected); Barbiturate Screen,Urine Not Detected (NotDetected); Benzodiazepines Screen,Urine Not Detected (NotDetected); Cocaine Screen,Urine Not Detected (NotDetected); Methadone Screen, Urine Not Detected (NotDetected); Opiate Screen,Urine Not Detected (NotDetected); Oxycodone Screen, Urine Not Detected (NotDetected); Phencyclidine Screen,Urine Not Detected (NotDetected); Tricyclic Antidepressant,Urine Not Detected (NotDetected); Urn Cannabinoid Scrn Not Detected (NotDetected)
== END 2019-08-08 23:44 | disposition home or self-care (01) ==
LOC: EC 19:23
DX: F41.9 Anxiety disorder, unspecified (principal); F32.9 Major depressive disorder, single episode, unspecified; Z91.048 Other nonmedicinal substance allergy status; Z79.899 Other long term (current) drug therapy
CPT/HCPCS: 80306; 82075; 99284

== ENCOUNTER 2019-12-22 10:39 | Emergency (ER) | payer OTHER ==
[2019-12-22 10:47] VITALS: TEMP 98.2
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
[2019-12-22 11:57] LABS: Amphetamine Screen,Urine Not Detected (NotDetected); Barbiturate Screen,Urine Not Detected (NotDetected); Benzodiazepines Screen,Urine Not Detected (NotDetected); Cocaine Screen,Urine Not Detected (NotDetected); Methadone Screen, Urine Not Detected (NotDetected); Opiate Screen,Urine Not Detected (NotDetected); Oxycodone Screen, Urine Not Detected (NotDetected); Phencyclidine Screen,Urine Not Detected (NotDetected); Tricyclic Antidepressant,Urine Not Detected (NotDetected); Urn Cannabinoid Scrn Not Detected (NotDetected)
[2019-12-22 18:07] VITALS: BP 117/84; PULSE 85; RESP 18
== END 2019-12-22 17:45 | disposition home or self-care (01) ==
LOC: EC 10:39
DX: F39 Unspecified mood [affective] disorder (principal); F32.9 Major depressive disorder, single episode, unspecified; Z91.048 Other nonmedicinal substance allergy status; Z79.899 Other long term (current) drug therapy
CPT/HCPCS: 80306; 82075; 99285

== ENCOUNTER 2020-04-14 19:38 | Emergency (ER) | payer OTHER ==
[2020-04-14 19:50] VITALS: BP 135/98; PULSE 93; RESP 17; TEMP 98
--- NOTE | 2020-04-14 21:57 | ED ---
General Adult HPI - General Source: patient, RN notes reviewed, old records reviewed Mode of arrival: ambulatory Limitations: no limitations <Tray Robledo - Last Filed: 04/14/20 21:56> <Yeis Benjamin - Last Filed: 04/16/20 07:47> - General Chief complaint: Psychiatric Symptoms Stated complaint: Mental health Time Seen by Provider: 04/14/20 19:55 - History of Present Illness Initial comments: 24-year-old male patient to ED. Patient reportedly told his alf that he was suicidal. Denies any physical complaints. Denies any other complaints. Systemic: Pt denies fatigue, fever/chills, rash. Pt denies weakness, night sweats, weight loss. Neuro: Pt denies headache, visual disturbances, syncope or pre-syncope. HEENT: Pt denies ocular discharge or irritation, otalgia, rhinorrhea, pharyngitis or notable lymphadenopathy. Cardiopulmonary: Pt denies chest pain, SOB, heart palpitations, dyspnea on exer tion. Abdominal/GI: Pt denies abdominal pain, n/v/d. : Pt denies dysuria, burning w/ urination, frequency/urgency. Denies new onset urinary or bowel incontinence. MSK: Pt denies myalgia, loss of strength or function in extremities. Neuro: Pt denies new onset weakness, paresthesias. (Tray Robledo) - Related Data Home Medications Medication Instructions Recorded Confirmed Ergocalciferol [Vitamin D2] 50,000 unit PO Q14D 05/27/17 12/22/19 Montelukast [Singulair] 10 mg PO HS 08/17/17 12/22/19 Divalproex ER [Depakote ER] 1,000 mg PO HS 04/08/18 12/22/19 Fenofibrate 54 mg PO DAILY 02/20/19 12/22/19 Multivitamins, Thera [Multivitamin 1 tab PO DAILY 02/20/19 12/22/19 (formulary)] Cetirizine HCl [Zyrtec] 10 mg PO DAILY 08/08/19 12/22/19 Melatonin 5 mg PO HS 08/08/19 12/22/19 OLANZapine 20 mg PO HS 08/08/19 12/22/19 haloperidoL [Haldol] 10 mg PO BID 08/08/19 12/22/19 Albuterol Sulfate [Albuterol 2 puff PO RT-Q4H PRN 12/22/19 12/22/19 Sulfate Hfa] Calcium Polycarbophil [Fiber-Lax] 625 mg PO BID 12/22/19 12/22/19 Omeprazole [PriLOSEC] 20 mg PO DAILY 12/22/19 12/22/19 Allergies Allergy/AdvReac Type Severity Reaction Status Date / Time pollen extracts AdvReac Itching Verified 04/14/20 19:50 Review of Systems ROS Other: All systems not noted in ROS Statement are negative. <Tray Robledo - Last Filed: 04/14/20 21:56> ROS Other: All systems not noted in ROS Statement are negative. <Yesi Benjamin - Last Filed: 04/16/20 07:47> ROS Statement: Those systems with pertinent positive or pertinent negative responses have been documented in the HPI. Past Medical History Past Medical History: No Reported History Additional Past Medical History / Comment(s): CP, developmentally delayed,kidney stones History of Any Multi-Drug Resistant Organisms: None Reported Past Surgical History: No Surgical Hx Reported Past Psychological History: Anxiety, Depression Smoking Status: Never smoker Past Alcohol Use History: None Reported Past Drug Use History: None Reported <Tray Robledo - Last Filed: 04/14/20 21:56> General Exam Limitations: no limitations <Tray Robledo - Last Filed: 04/14/20 21:56> - General Exam Comments Initial Comments: Constitutional: NAD, AOX3, Pt has pleasant affect. HEENT: NC/AT, trachea midline, neck supple, no lymphadenopathy. External ears appear normal, without discharge. Mucous membranes moist. EOM intact. There is no scleral icterus. No pallor noted. Cardiopulmonary: RRR, no murmurs, rubs or gallops, no JVD noted. Lungs CTAB in anterior and posterior almanzar. No peripheral edema. Abdominal exam: Abdomen soft and non-distended. Abdomen non-tender to palpation in all 4 quadrants. Neuro: CN II-XII grossly intact. No nuchal rigidity. (Tray Robledo) Course Vital Signs 04/14/20 19:47 Temperature 98 F Pulse Rate 93 Respiratory 17 Rate Blood Pressure 135/98 O2 Sat by Pulse 97 Oximetry Medical Decision Making <Tray Robledo - Last Filed: 04/14/20 21:56> <Yesi Benjamin - Last Filed: 04/16/20 07:47> - Medical Decision Making 24-year-old male patient ED for evaluation of reported suicidal ideations. Patient vital signs are stable, afebrile. Physical exam is negative for acute pathology. Noted by emergency psychiatric services recommended discharge. EPS discussed the case with patient guardian and alf were on agreement. Patient is declining any current suicidal ideations. Will be discharged outpatient follow-up and return precautions. Case discussed with Dr. Benjamin. (Tray Robledo) I was available for consultation in the emergency department. The history and physical exam were done by the midlevel provider. I was consulted for this patients care. I reviewed the case with the midlevel provider and based on their presentation of the patient, I agree with the assessment, medical decision making and plan of care as documented. Chart was dictated using [employer] dictation software. Attempts were made to correct any dictation errors however some typographical errors may persist. Patient seen and evaluated during state of emergency due to Covid-19. (Yesi Benjamin) Disposition Is patient prescribed a controlled substance at d/c from ED?: No <Tray Robledo - Last Filed: 04/14/20 21:56> <Yesi Benjamin - Last Filed: 04/16/20 07:47> Clinical Impression: Depression Disposition: HOME SELF-CARE Condition: Stable Instructions (If sedation given, give patient instructions): Depression (ED) Additional Instructions: Follow up with PCP tomorrow. Return to ED with any worsening symptoms. Referrals: [facility] [Primary Care Provider] - 1-2 days
== END 2020-04-14 22:05 | disposition home or self-care (01) ==
LOC: EC 19:38
DX: F32.9 Major depressive disorder, single episode, unspecified (principal); Z79.890 Hormone replacement therapy; Z79.899 Other long term (current) drug therapy; Z91.048 Other nonmedicinal substance allergy status
CPT/HCPCS: 82075; 99285

== ENCOUNTER → 2020-04-23 | Outpatient (CLI) | payer OTHER | END | disposition home or self-care (01) | LOC: RADMRIMAIN 14:18 | PROVIDERS: ATTEND Podiatrist Foot & Ankle Surgery | DX: Z53.9 Procedure and treatment not carried out, unspecified reason (principal) ==

== ENCOUNTER 2020-05-16 21:10 | Emergency (ER) | payer OTHER ==
[2020-05-16 21:20] VITALS: BP 134/80; PULSE 71; RESP 20; TEMP 98.4
--- NOTE | 2020-05-16 21:42 | ED ---
Recheck HPI - General Chief Complaint: Recheck/Abnormal Lab/Rx Stated Complaint: Abnormal Labs Time Seen by Provider: 05/16/20 21:20 Source: patient, EMS Mode of arrival: EMS Limitations: no limitations - History of Present Illness Initial Comments: 24-year-old male patient presents to the emergency department today for evaluation after having a high temperature reading at home. Patient states he checked his temperature 3 times as 103 the first time in 102 a couple times after that. Patient states he has had a mild cough for quite some time. He de nies any new symptoms today. Denies any sore throat or congestion. Denies any vomiting or diarrhea. Patient states he does have some mild nausea but states this is not unusual for him. He is unsure of his exposed to anyone with chronic virus. Denies having any hot drinks prior to checking his temperature. Patient denies any recent rash, shortness of breath, chest pain, constipation, back pain , numbness, tingling, dizziness, weakness, hematuria, dysuria, urinary urgency, urinary frequency, headache, visual changes, or any other complaints. - Related Data Home Medications Medication Instructions Recorded Confirmed Ergocalciferol [Vitamin D2] 50,000 unit PO Q14D 05/27/17 12/22/19 Montelukast [Singulair] 10 mg PO HS 08/17/17 12/22/19 Divalproex ER [Depakote ER] 1,000 mg PO HS 04/08/18 12/22/19 Fenofibrate 54 mg PO DAILY 02/20/19 12/22/19 Multivitamins, Thera [Multivitamin 1 tab PO DAILY 02/20/19 12/22/19 (formulary)] Cetirizine HCl [Zyrtec] 10 mg PO DAILY 08/08/19 12/22/19 Melatonin 5 mg PO HS 08/08/19 12/22/19 OLANZapine 20 mg PO HS 08/08/19 12/22/19 haloperidoL [Haldol] 10 mg PO BID 08/08/19 12/22/19 Albuterol Sulfate [Albuterol 2 puff PO RT-Q4H PRN 12/22/19 12/22/19 Sulfate Hfa] Calcium Polycarbophil [Fiber-Lax] 625 mg PO BID 12/22/19 12/22/19 Omeprazole [PriLOSEC] 20 mg PO DAILY 12/22/19 12/22/19 Allergies Allergy/AdvReac Type Severity Reaction Status Date / Time pollen extracts AdvReac Itching Verified 05/16/20 22:08 Review of Systems ROS Statement: Those systems with pertinent positive or pertinent negative responses have been documented in the HPI. ROS Other: All systems not noted in ROS Statement are negative. Past Medical History Past Medical History: No Reported History Additional Past Medical History / Comment(s): CP, developmentally delayed,kidney stones History of Any Multi-Drug Resistant Organisms: None Reported Past Surgical History: No Surgical Hx Reported Past Psychological History: Anxiety, Depression Smoking Status: Never smoker Past Alcohol Use History: None Reported Past Drug Use History: None Reported General Exam Limitations: no limitations General appearance: alert, in no apparent distress, other (Physical well- developed, well-nourished adult male patient in no acute distress. Vital signs upon presentation are temperature 98.4F, pulse 71, respirations 20, blood pressure 134/80, pulse ox 99% on room air.) Eye exam: Present: normal appearance, PERRL, EOMI. Absent: scleral icterus, conjunctival injection, periorbital swelling ENT exam: Present: normal exam, normal oropharynx, mucous membranes moist Respiratory exam: Present: normal lung sounds bilaterally. Absent: respiratory distress, wheezes, rales, rhonchi, stridor Cardiovascular Exam: Present: regular rate, normal rhythm, normal heart sounds. Absent: systolic murmur, diastolic murmur, rubs, gallop, clicks GI/Abdominal exam: Present: soft, normal bowel sounds. Absent: distended, tenderness, guarding, rebound, rigid Neurological exam: Present: alert, oriented X3, CN II-XII intact Psychiatric exam: Present: normal affect, normal mood Skin exam: Present: warm, dry, intact, normal color. Absent: rash Course Vital Signs 05/16/20 21:14 Temperature 98.4 F Pulse Rate 71 Respiratory 20 Rate Blood Pressure 134/80 O2 Sat by Pulse 99 Oximetry Medical Decision Making - Medical Decision Making 24-year-old male patient presents to the emergency department today for evaluation of possible fever and cough. Physical examination is unremarkable with clear equal lung sounds. No pharyngeal erythema. He is not currently febrile and vital signs are normal. Chest x-ray was negative. We did send a COVID-19 swab. He'll be discharged follow up with his primary care physician for recheck in 1-2 days. Return parameters were discussed in detail. He verbalizes understanding and agrees with this plan. - Radiology Data Radiology results: report reviewed, image reviewed One view x-ray of the chest is obtained. Report was reviewed in its entirety. Impression by Dr. Shipley shows inspiration decreased compared to old exam. Normal heart. Disposition Clinical Impression: Cough Disposition: HOME SELF-CARE Condition: Good Instructions (If sedation given, give patient instructions): Acute Cough (ED) Additional Instructions: Await your COVID-19 test results. Follow-up through primary care physician for recheck in 1-2 days. Return to the emergency department for any new, worsening, or concerning symptoms. Is patient prescribed a controlled substance at d/c from ED?: No Referrals: [facility] [Primary Care Provider] - 1-2 days Time of Disposition: 22:10
--- NOTE | 2020-05-16 22:03 | XR ---
EXAMINATION TYPE: XR chest 1V portable DATE OF EXAM: 05/16/2020 COMPARISON: 01/04/2017 HISTORY: Cough TECHNIQUE: FINDINGS: There is poor inspiration. There is no heart failure nor confluent pneumonic infiltrate. Co stophrenic angles are clear. Bony thorax is intact. IMPRESSION: Inspiration decreased compared to old exam. Normal heart.
== END 2020-05-16 22:17 | disposition home or self-care (01) ==
LOC: EC 21:10
DX: R05 Cough (principal); F32.9 Major depressive disorder, single episode, unspecified; Z20.828 Contact with and (suspected) exposure to other viral communicable diseases; Z79.899 Other long term (current) drug therapy; Z79.890 Hormone replacement therapy; Z91.048 Other nonmedicinal substance allergy status
CPT/HCPCS: 71045; 99282; U0003

== ENCOUNTER 2020-05-26 11:24 | Emergency (ER) | payer OTHER ==
[2020-05-26] MEDS ORDERED: ONDANSETRON 4 MG/2 ML VIAL IVP STA (11:44)
[2020-05-26] MEDS ORDERED: SODIUM CHLORIDE 0.9% 500 ML 500 ML IV STA (11:44)
[2020-05-26] MEDS ORDERED: FAMOTIDINE 20 MG/2 ML VIAL IV STA (11:44)
--- NOTE | 2020-05-26 11:46 | ED ---
General Adult HPI - General Chief complaint: Abdominal Pain Stated complaint: Abd Pain Time Seen by Provider: 05/26/20 11:35 Source: patient, RN notes reviewed Mode of arrival: ambulatory Limitations: no limitations - History of Present Illness Initial comments: Patient is a pleasant 24-year-old male presenting to the emergency Department with complaints of abdominal discomfort. Onset of symptoms was this morning. Symptoms did worsen some. Patient did vomit once and still has some nausea. Discomfort is 6/10, mostly in the upper abdomen. Patient did have a bowel movement without improvement of symptoms. Patient states he does get similar symptoms frequently, usually every couple months. No fever. - Related Data Home Medications Medication Instructions Recorded Confirmed Ergocalciferol [Vitamin D2] 50,000 unit PO Q14D 05/27/17 12/22/19 Montelukast [Singulair] 10 mg PO HS 08/17/17 12/22/19 Divalproex ER [Depakote ER] 1,000 mg PO HS 04/08/18 12/22/19 Fenofibrate 54 mg PO DAILY 02/20/19 12/22/19 Multivitamins, Thera [Multivitamin 1 tab PO DAILY 02/20/19 12/22/19 (formulary)] Cetirizine HCl [Zyrtec] 10 mg PO DAILY 08/08/19 12/22/19 Melatonin 5 mg PO HS 08/08/19 12/22/19 OLANZapine 20 mg PO HS 08/08/19 12/22/19 haloperidoL [Haldol] 10 mg PO BID 08/08/19 12/22/19 Albuterol Sulfate [Albuterol 2 puff PO RT-Q4H PRN 12/22/19 12/22/19 Sulfate Hfa] Calcium Polycarbophil [Fiber-Lax] 625 mg PO BID 12/22/19 12/22/19 Omeprazole [PriLOSEC] 20 mg PO DAILY 12/22/19 12/22/19 Allergies Allergy/AdvReac Type Severity Reaction Status Date / Time pollen extracts AdvReac Itching Verified 05/26/20 11:31 Review of Systems ROS Statement: Those systems with pertinent positive or pertinent negative responses have been documented in the HPI. ROS Other: All systems not noted in ROS Statement are negative. Constitutional: Denies: fever, chills Eyes: Denies: eye pain ENT: Denies: ear pain Respiratory: Denies: cough Cardiovascular: Denies: chest pain Endocrine: Denies: fatigue Gastrointestinal: Reports: abdominal pain, nausea, vomiting Genitourinary: Denies: dysuria Musculoskeletal: Denies: back pain Skin: Denies: rash Neurological: Denies: weakness Past Medical History Past Medical History: No Reported History Additional Past Medical History / Comment(s): CP, developmentally delayed,kidney stones History of Any Multi-Drug Resistant Organisms: None Reported Past Surgical History: No Surgical Hx Reported Past Psychological History: Anxiety, Depression Smoking Status: Never smoker Past Alcohol Use History: None Reported Past Drug Use History: None Reported General Exam Limitations: no limitations General appearance: alert, in no apparent distress Head exam: Present: normocephalic Eye exam: Present: normal appearance Neck exam: Present: normal inspection Respiratory exam: Present: normal lung sounds bilaterally Cardiovascular Exam: Present: regular rate, normal rhythm Expanded Peripheral pulses: 2+: Posterior Tibialis (R), Posterior Tibialis (L) GI/Abdominal exam: Present: soft, tenderness (Mild epigastric tenderness to palpate), normal bowel sounds. Absent: distended, guarding, rebound, rigid, pulsatile mass Extremities exam: Present: normal inspection Neurological exam: Present: alert Psychiatric exam: Present: normal affect, normal mood Skin exam: Present: normal color Course Vital Signs 05/26/20 11:27 Temperature 98.6 F Pulse Rate 109 H Respiratory 20 Rate Blood Pressure 114/76 O2 Sat by Pulse 99 Oximetry Medical Decision Making - Medical Decision Making Patient reevaluated and feeling better. Abdomen soft and nontender. Patient is comfortable with discharge home. - Lab Data Result diagrams: 05/26/20 11:47 05/26/20 11:47 Lab Results 05/26/20 05/26/20 05/26/20 Range/Units 11:47 11:47 11:47 WBC 5.9 (3.8-10.6) k/uL RBC 5.80 (4.30-5.90) m/uL Hgb 15.7 (13.0-17.5) gm/dL Hct 46.7 (39.0-53.0) % MCV 80.5 (80.0-100.0) fL MCH 27.0 (25.0-35.0) pg MCHC 33.6 (31.0-37.0) g/dL RDW 13.8 (11.5-15.5) % Plt Count 263 (150-450) k/uL MPV 7.1 Neutrophils % 59 % Lymphocytes % 31 % Monocytes % 6 % Eosinophils % 2 % Basophils % 0 % Neutrophils # 3.5 (1.3-7.7) k/uL Lymphocytes # 1.8 (1.0-4.8) k/uL Monocytes # 0.4 (0-1.0) k/uL Eosinophils # 0.1 (0-0.7) k/uL Basophils # 0.0 (0-0.2) k/uL Sodium 140 (137-145) mmol/L Potassium 4.1 (3.5-5.1) mmol/L Chloride 105 (98-107) mmol/L Carbon Dioxide 26 (22-30) mmol/L Anion Gap 9 mmol/L BUN 15 (9-20) mg/dL Creatinine 0.95 (0.66-1.25) mg/dL Est GFR (CKD-EPI)AfAm >90 (>60 ml/min/1.73 sqM) Est GFR (CKD-EPI)NonAf >90 (>60 ml/min/1.73 sqM) Glucose 110 H (74-99) mg/dL Calcium 10.3 H (8.4-10.2) mg/dL Total Bilirubin 0.7 (0.2-1.3) mg/dL AST 32 (17-59) U/L ALT 35 (4-49) U/L Alkaline Phosphatase 57 (38-126) U/L Total Protein 7.7 (6.3-8.2) g/dL Albumin 4.5 (3.5-5.0) g/dL Amylase 63 (30-110) U/L Lipase 43 (23-300) U/L Urine Color Yellow Urine Appearance Clear (Clear) Urine pH 6.5 (5.0-8.0) Ur Specific [place] 1.017 (1.001-1.035) Urine Protein Negative (Negative) Urine Glucose (UA) Negative (Negative) Urine Ketones Negative (Negative) Urine Blood Negative (Negative) Urine Nitrite Negative (Negative) Urine Bilirubin Negative (Negative) Urine Urobilinogen <2.0 (<2.0) mg/dL Ur Leukocyte Esterase Negative (Negative) - Radiology Data Radiology results: image reviewed (Abdominal x-ray shows some air-fluid levels with nondilated central small bowel loops. Nonobstructive pattern. Consider regional ileus or enteritis.) Disposition Clinical Impression: Abdominal pain Disposition: HOME SELF-CARE Condition: Stable Instructions (If sedation given, give patient instructions): Abdominal Pain (ED) Additional Instructions: Please follow-up with primary care physician in the next day or 2 for recheck. Return for increased pain, fever, vomiting, worsening symptoms or other concerns. Is patient prescribed a controlled substance at d/c from ED?: No Referrals: [facility] [Primary Care Provider] - 1-2 days Time of Disposition: 13:25
[2020-05-26 12:00] LABS: Basophils % (A) 0 %; Eosinophils # (A) 0.1 k/uL (0-0.7); Eosinophils % (A) 2 %; HCT 46.7 % (39.0-53.0); HGB 15.7 gm/dL (13.0-17.5); Lymphocytes # (A) 1.8 k/uL (1.0-4.8); Lymphocytes % (A) 31 %; MCHC 33.6 g/dL (31.0-37.0); MCV 80.5 fL (80.0-100.0); Mean Platelet Volume 7.1; Monocytes # (A) 0.4 k/uL (0-1.0); Monocytes % (A) 6 %; Neutrophils # (A) 3.5 k/uL (1.3-7.7); Neutrophils % (A) 59 %; Platelet Count 263 k/uL (150-450); RDW 13.8 % (11.5-15.5); WBC 5.9 k/uL (3.8-10.6)
[2020-05-26 12:01] LABS: Appearance,Urine Clear (Clear); Bilirubin,Urine Negative (Negative); Blood,Urine Negative (Negative); Color,Urine Yellow; Glucose,Urine (UA) Negative (Negative); Ketones,Urine Negative (Negative); Leukocyte Esterase,Urine Negative (Negative); Nitrite,Urine Negative (Negative); PH, Urine 6.5 (5.0-8.0); Protein,Urine Negative (Negative); Specific Gravity,Urine 1.017 (1.001-1.035); Urobilinogen,Urine <2.0 mg/dL (<2.0)
--- NOTE | 2020-05-26 12:13 | XR ---
EXAMINATION TYPE: XR KUB DATE OF EXAM: 05/26/2020 Comparison: 12/30/2017 Clinical History: 24-year-old male abdominal pain Findings: No evidence for free intraperitoneal air. Lung bases are clear. Small mid abdominal air-fluid levels within the small bowel. No dilated small bowel. Mild stool within the rectum. No suspicious calcifications seen. Impression: Some air-fluid levels within nondilated central small bowel loops. Overall nonobstructive bowel gas p attern at this time. Consider a regional ileus or enteritis.
[2020-05-26 12:15] LABS: ALT 35 U/L (4-49); AST 32 U/L (17-59); African American GFR (CKD) >90 (>60 ml/min/1.73 sqM); Albumin 4.5 g/dL (3.5-5.0); Alkaline Phosphatase 57 U/L (38-126); Amylase 63 U/L (30-110); Anion Gap 9 mmol/L; Blood Urea Nitrogen 15 mg/dL (9-20); Calcium 10.3 mg/dL (8.4-10.2); Carbon Dioxide 26 mmol/L (22-30); Chloride 105 mmol/L (98-107); Glucose 110 mg/dL (74-99); Lipase 43 U/L (23-300); Non-African American GFR(CKD) >90 (>60 ml/min/1.73 sqM); Potassium 4.1 mmol/L (3.5-5.1); Sodium 140 mmol/L (137-145); Total Bilirubin 0.7 mg/dL (0.2-1.3); Total Protein 7.7 g/dL (6.3-8.2)
[2020-05-26 13:39] VITALS: BP 116/82; PULSE 98; RESP 18; TEMP 97.8
== END 2020-05-26 13:38 | disposition home or self-care (01) ==
LOC: EC 11:24
DX: R11.2 Nausea with vomiting, unspecified (principal); R62.50 Unspecified lack of expected normal physiological development in childhood; F41.9 Anxiety disorder, unspecified; F32.9 Major depressive disorder, single episode, unspecified; Z91.048 Other nonmedicinal substance allergy status; Z87.442 Personal history of urinary calculi; Z79.899 Other long term (current) drug therapy
CPT/HCPCS: 36415; 80053; 82150; 83690; 85025; 81003; 74018; 99284; 96374; 96375; 96361; J2405

== ENCOUNTER → 2020-05-29 | Outpatient (CLI) | payer OTHER ==
--- NOTE | 2020-05-29 18:37 | MR ---
EXAMINATION TYPE: MR ankle RT wo con DATE OF EXAM: 05/29/2020 COMPARISON: Outside x-ray March 09, 2020 HISTORY: Sprain of right ankle ligament. Nondisplaced fracture of lateral malleolus. Bone tumor/lesio n right lateral malleolus. Pain for one month per patient. Standard multiplanar, multisequence MRI departmental protocol Multiplanar, multisequence images of the right ankle were acquired. FINDINGS: Distal Achilles tendon intact and within normal limits. Visualized plantar fascia unremarka ble. The peroneus brevis and longus tendons are felt within normal limits. The flexor tendons along supervisor wool shearing ior medial aspect of the ankle remain intact without abnormal signal. Anterior extensor tendons are i ntact. The anterior tibiofibular and anterior talofibular ligaments are intact. Medial deltoid ligament is i ntact. Corresponding to x-ray there is 1.2 cm ovoid cortical lesion of low T1 and T2 signal corresponding to sclerotic focus consistent with fibrous cortical defect. Ankle mortise symmetry is preserved. No sig nificant soft tissue swelling or subcutaneous edema. Normal sinus tarsi fat is seen. Hindfoot articul ations are maintained. Visualized portion of midfoot structures are preserved. Lisfranc joints are intact. No suspicious oss eous edema. IMPRESSION: No ligamentous or tendon tear. Nonaggressive 1.2 cm fibrous cortical defect distal fibula r diaphysis otherwise unremarkable study.
== END | disposition home or self-care (01) ==
LOC: RADMRIMAIN 14:53
PROVIDERS: ATTEND Podiatrist Foot & Ankle Surgery
DX: M89.8X7 Other specified disorders of bone, ankle and foot (principal)

== ENCOUNTER 2020-06-21 00:01 | Emergency (ER) | payer OTHER ==
[2020-06-21 00:11] VITALS: BP 123/81; PULSE 85; RESP 16; TEMP 98.5
--- NOTE | 2020-06-21 00:55 | ED ---
Lower Extremity Injury HPI - General Chief Complaint: Extremity Injury, Lower Stated Complaint: right ankle injury Time Seen by Provider: 06/21/20 00:12 Source: patient Mode of arrival: ambulatory Limitations: no limitations - History of Present Illness Initial Comments: This patient is 24-year-old man presenting for right ankle pain. He indicates the right lateral malleolus. The patient states that he felt his foot turn when he was getting out of bed this morning. He has been able to bear weight. Patient denies any other injuries. MD Complaint: ankle injury Onset/Timin -: hour(s) Injury: Ankle: Right Type of Injury: inversion Place: home Severity: moderate Improves With: nothing Worsens With: weight bearing Context: other Associated Symptoms: ambulatory Treatments Prior to Arrival: NSAIDS - Related Data Home Medications Medication Instructions Recorded Confirmed Ergocalciferol [Vitamin D2] 50,000 unit PO Q14D 05/27/17 12/22/19 Montelukast [Singulair] 10 mg PO HS 08/17/17 12/22/19 Divalproex ER [Depakote ER] 1,000 mg PO HS 04/08/18 12/22/19 Fenofibrate 54 mg PO DAILY 02/20/19 12/22/19 Multivitamins, Thera [Multivitamin 1 tab PO DAILY 02/20/19 12/22/19 (formulary)] Cetirizine HCl [Zyrtec] 10 mg PO DAILY 08/08/19 12/22/19 Melatonin 5 mg PO HS 08/08/19 12/22/19 OLANZapine 20 mg PO HS 08/08/19 12/22/19 haloperidoL [Haldol] 10 mg PO BID 08/08/19 12/22/19 Albuterol Sulfate [Albuterol 2 puff PO RT-Q4H PRN 12/22/19 12/22/19 Sulfate Hfa] Calcium Polycarbophil [Fiber-Lax] 625 mg PO BID 12/22/19 12/22/19 Omeprazole [PriLOSEC] 20 mg PO DAILY 12/22/19 12/22/19 Previous Rx's Medication Instructions Recorded Ibuprofen 800 mg PO TID #20 tablet 06/21/20 Allergies Allergy/AdvReac Type Severity Reaction Status Date / Time pollen extracts AdvReac Itching Verified 06/21/20 00:08 Review of Systems ROS Statement: Those systems with pertinent positive or pertinent negative responses have been documented in the HPI. ROS Other: All systems not noted in ROS Statement are negative. Musculoskeletal: Reports: as per HPI, arthralgia Neurological: Denies: weakness, numbness Past Medical History Past Medical History: No Reported History Additional Past Medical History / Comment(s): CP, developmentally delayed,kidney stones History of Any Multi-Drug Resistant Organisms: None Reported Past Surgical History: No Surgical Hx Reported Past Psychological History: Anxiety, Depression Smoking Status: Never smoker Past Alcohol Use History: None Reported Past Drug Use History: None Reported General Exam Limitations: no limitations General appearance: alert, in no apparent distress Right Knee exam: Present: normal inspection, full ROM. Absent: tenderness, swelling, abrasion, laceration, ecchymosis, deformity Lower Leg exam: Present: normal inspection, full ROM. Absent: tenderness, swelling, abrasion, laceration, ecchymosis, deformity, crepitus, dislocation Ankle exam: Present: normal inspection, full ROM, tenderness. Absent: swelling, abrasion, laceration, ecchymosis, deformity, crepitus, dislocation, erythema, anterior draw sign Foot/Toe exam: Present: normal inspection, full ROM. Absent: tenderness, swelling, abrasion, laceration, ecchymosis, deformity, crepitus, dislocation, erythema, amputation, tenderness at base of 5th metatarsal Neurovascular tendon exam: Present: no vascular compromise. Absent: pulse deficit, abnormal cap refill, motor deficit, sensory deficit, tendon deficit, abnormal 2-point discrimination, decreased fine/light touch, significant pain with passive ROM of distal joint Neurological exam: Present: alert. Absent: motor sensory deficit Skin exam: Present: warm, dry, intact, normal color. Absent: rash Course Vital Signs 06/21/20 00:08 Temperature 98.5 F Pulse Rate 85 Respiratory 16 Rate Blood Pressure 123/81 O2 Sat by Pulse 97 Oximetry Disposition Clinical Impression: Right ankle sprain Disposition: HOME SELF-CARE Condition: Good Instructions (If sedation given, give patient instructions): Ankle Sprain (ED) Prescriptions: Ibuprofen 800 mg PO TID #20 tablet Is patient prescribed a controlled substance at d/c from ED?: No Referrals: None,Stated [Primary Care Provider] - 1-2 days
--- NOTE | 2020-06-21 01:01 | XR ---
EXAM: XR Right Ankle Complete, 3 Views CLINICAL HISTORY: pain. Lateral malleolus. TECHNIQUE: Frontal, lateral and oblique views of the right ankle. COMPARISON: No relevant prior studies available. FINDINGS: Bones/joints: Unremarkable. No fracture. No dislocation. Pes planus Soft tissues: Unremarkable. IMPRESSION: No acute findings
== END 2020-06-21 01:26 | disposition home or self-care (01) ==
LOC: EC 00:01
DX: S93.401A Sprain of unspecified ligament of right ankle, initial encounter (principal); F32.9 Major depressive disorder, single episode, unspecified; Z79.899 Other long term (current) drug therapy; Z79.890 Hormone replacement therapy; Z91.048 Other nonmedicinal substance allergy status; W06.XXXA Fall from bed, initial encounter; Y93.89 Activity, other specified; Y92.009 Unspecified place in unspecified non-institutional (private) residence as the place of occurrence of the external cause
CPT/HCPCS: 73610; 99283; L4350

== ENCOUNTER 2020-06-22 18:07 | Emergency (ER) | payer OTHER ==
[2020-06-22] MEDS ORDERED: PANTOPRAZOLE 40 MG/10 ML VIAL IVP STA (18:44)
[2020-06-22] MEDS ORDERED: SODIUM CHLORIDE 0.9% 1,000 ML IV STA (18:44)
[2020-06-22] MEDS ORDERED: ONDANSETRON 4 MG/2 ML VIAL IVP STA (18:44)
--- NOTE | 2020-06-22 18:44 | ED ---
Abdominal Pain HPI - General Chief Complaint: Abdominal Pain Stated Complaint: Foot pain Time Seen by Provider: 06/22/20 18:44 Source: patient Mode of arrival: ambulatory Limitations: no limitations - History of Present Illness Initial Comments: 24-year-old male presenting to the emergency department with a chief complaint abdominal pain. States the pain started yesterday and it is very mild throughout the whole abdomen. States his last bowel movement was yesterday. He denies any nausea vomiting diarrhea. She denies any hematuria, hematochezia or melena. Denies any chest pain shortness of breath. States he has been eating without issues. - Related Data Home Medications Medication Instructions Recorded Confirmed Ergocalciferol [Vitamin D2] 50,000 unit PO Q14D 05/27/17 12/22/19 Montelukast [Singulair] 10 mg PO HS 08/17/17 12/22/19 Divalproex ER [Depakote ER] 1,000 mg PO HS 04/08/18 12/22/19 Fenofibrate 54 mg PO DAILY 02/20/19 12/22/19 Multivitamins, Thera [Multivitamin 1 tab PO DAILY 02/20/19 12/22/19 (formulary)] Cetirizine HCl [Zyrtec] 10 mg PO DAILY 08/08/19 12/22/19 Melatonin 5 mg PO HS 08/08/19 12/22/19 OLANZapine 20 mg PO HS 08/08/19 12/22/19 haloperidoL [Haldol] 10 mg PO BID 08/08/19 12/22/19 Albuterol Sulfate [Albuterol 2 puff PO RT-Q4H PRN 12/22/19 12/22/19 Sulfate Hfa] Calcium Polycarbophil [Fiber-Lax] 625 mg PO BID 12/22/19 12/22/19 Omeprazole [PriLOSEC] 20 mg PO DAILY 12/22/19 12/22/19 Previous Rx's Medication Instructions Recorded Ibuprofen 800 mg PO TID #20 tablet 06/21/20 Allergies Allergy/AdvReac Type Severity Reaction Status Date / Time pollen extracts AdvReac Itching Verified 06/22/20 18:42 Review of Systems ROS Statement: Those systems with pertinent positive or pertinent negative responses have been documented in the HPI. ROS Other: All systems not noted in ROS Statement are negative. Past Medical History Past Medical History: No Reported History Additional Past Medical History / Comment(s): CP, developmentally delayed,kidney stones History of Any Multi-Drug Resistant Organisms: None Reported Past Surgical History: No Surgical Hx Reported Past Psychological History: Anxiety, Depression Smoking Status: Never smoker Past Alcohol Use History: None Reported Past Drug Use History: None Reported General Exam Limitations: no limitations General appearance: alert, in no apparent distress Head exam: Present: atraumatic, normocephalic, normal inspection Eye exam: Present: normal appearance, PERRL, EOMI Pupils: Present: normal accommodation ENT exam: Present: normal exam, normal oropharynx, mucous membranes moist Neck exam: Present: normal inspection, full ROM. Absent: tenderness Respiratory exam: Present: normal lung sounds bilaterally. Absent: respiratory distress, wheezes, rales Cardiovascular Exam: Present: regular rate, normal rhythm, normal heart sounds GI/Abdominal exam: Present: soft, tenderness (Mild diffuse). Absent: distended Extremities exam: Present: normal inspection, full ROM Back exam: Present: normal inspection, full ROM. Absent: tenderness, CVA tenderness (R) Neurological exam: Present: alert, oriented X3 Psychiatric exam: Present: normal affect, normal mood Skin exam: Present: warm, dry, intact, normal color Course Vital Signs 06/22/20 18:40 Temperature 98.3 F Pulse Rate 91 Respiratory 20 Rate Blood Pressure 141/65 O2 Sat by Pulse 99 Oximetry Medical Decision Making - Medical Decision Making 24-year-old male presenting to emergency prompt chief complaint abdominal pain. On physical examination, patient has very mild, diffuse abdominal pain. This is very nonspecific. Patient is otherwise resting comfortably eating a sandwich and watching TV. CBC CMP and UA unremarkable. Patient will be discharged with a primary care follow-up. Case discussed with physician. - Lab Data Result diagrams: 06/22/20 19:11 06/22/20 19:11 Lab Results 06/22/20 06/22/20 06/22/20 Range/Units 18:44 19:11 19:11 WBC 5.9 (3.8-10.6) k/uL RBC 5.39 (4.30-5.90) m/uL Hgb 14.6 (13.0-17.5) gm/dL Hct 43.4 (39.0-53.0) % MCV 80.4 (80.0-100.0) fL MCH 27.1 (25.0-35.0) pg MCHC 33.7 (31.0-37.0) g/dL RDW 13.8 (11.5-15.5) % Plt Count 264 (150-450) k/uL MPV 7.4 Neutrophils % 59 % Lymphocytes % 29 % Monocytes % 8 % Eosinophils % 2 % Basophils % 0 % Neutrophils # 3.5 (1.3-7.7) k/uL Lymphocytes # 1.7 (1.0-4.8) k/uL Monocytes # 0.5 (0-1.0) k/uL Eosinophils # 0.1 (0-0.7) k/uL Basophils # 0.0 (0-0.2) k/uL Sodium 140 (137-145) mmol/L Potassium 3.8 (3.5-5.1) mmol/L Chloride 105 (98-107) mmol/L Carbon Dioxide 27 (22-30) mmol/L Anion Gap 8 mmol/L BUN 14 (9-20) mg/dL Creatinine 0.99 (0.66-1.25) mg/dL Est GFR (CKD-EPI)AfAm >90 (>60 ml/min/1.73 sqM) Est GFR (CKD-EPI)NonAf >90 (>60 ml/min/1.73 sqM) Glucose 118 H (74-99) mg/dL Calcium 10.2 (8.4-10.2) mg/dL Total Bilirubin 0.4 (0.2-1.3) mg/dL AST 30 (17-59) U/L ALT 29 (4-49) U/L Alkaline Phosphatase 57 (38-126) U/L Total Protein 7.6 (6.3-8.2) g/dL Albumin 4.3 (3.5-5.0) g/dL Lipase 51 (23-300) U/L Urine Color Yellow Urine Appearance Clear (Clear) Urine pH 5.5 (5.0-8.0) Ur Specific [place] 1.022 (1.001-1.035) Urine Protein Negative (Negative) Urine Glucose (UA) Negative (Negative) Urine Ketones Negative (Negative) Urine Blood Negative (Negative) Urine Nitrite Negative (Negative) Urine Bilirubin Negative (Negative) Urine Urobilinogen <2.0 (<2.0) mg/dL Ur Leukocyte Esterase Negative (Negative) Disposition Clinical Impression: Abdominal pain Disposition: HOME SELF-CARE Condition: Stable Instructions (If sedation given, give patient instructions): Abdominal Pain (ED) Additional Instructions: Follow-up with primary care physician. Return to emergency department if symptoms worsen. Is patient prescribed a controlled substance at d/c from ED?: No Referrals: [facility] [Primary Care Provider] - 1-2 days Time of Disposition: 19:50
[2020-06-22 19:22] LABS: Appearance,Urine Clear (Clear); Bilirubin,Urine Negative (Negative); Blood,Urine Negative (Negative); Color,Urine Yellow; Glucose,Urine (UA) Negative (Negative); Ketones,Urine Negative (Negative); Leukocyte Esterase,Urine Negative (Negative); Nitrite,Urine Negative (Negative); PH, Urine 5.5 (5.0-8.0); Protein,Urine Negative (Negative); Specific Gravity,Urine 1.022 (1.001-1.035); Urobilinogen,Urine <2.0 mg/dL (<2.0)
[2020-06-22 19:23] LABS: Basophils % (A) 0 %; Eosinophils # (A) 0.1 k/uL (0-0.7); Eosinophils % (A) 2 %; HCT 43.4 % (39.0-53.0); HGB 14.6 gm/dL (13.0-17.5); Lymphocytes # (A) 1.7 k/uL (1.0-4.8); Lymphocytes % (A) 29 %; MCH 27.1 pg (25.0-35.0); MCHC 33.7 g/dL (31.0-37.0); MCV 80.4 fL (80.0-100.0); Mean Platelet Volume 7.4; Monocytes # (A) 0.5 k/uL (0-1.0); Monocytes % (A) 8 %; Neutrophils # (A) 3.5 k/uL (1.3-7.7); Neutrophils % (A) 59 %; Platelet Count 264 k/uL (150-450); RBC 5.39 m/uL (4.30-5.90); RDW 13.8 % (11.5-15.5); WBC 5.9 k/uL (3.8-10.6)
[2020-06-22 19:38] LABS: ALT 29 U/L (4-49); AST 30 U/L (17-59); African American GFR (CKD) >90 (>60 ml/min/1.73 sqM); Albumin 4.3 g/dL (3.5-5.0); Alkaline Phosphatase 57 U/L (38-126); Anion Gap 8 mmol/L; Blood Urea Nitrogen 14 mg/dL (9-20); Calcium 10.2 mg/dL (8.4-10.2); Carbon Dioxide 27 mmol/L (22-30); Chloride 105 mmol/L (98-107); Glucose 118 mg/dL (74-99); Lipase 51 U/L (23-300); Non-African American GFR(CKD) >90 (>60 ml/min/1.73 sqM); Potassium 3.8 mmol/L (3.5-5.1); Sodium 140 mmol/L (137-145); Total Bilirubin 0.4 mg/dL (0.2-1.3); Total Protein 7.6 g/dL (6.3-8.2)
[2020-06-22 20:40] VITALS: BP 141/96; PULSE 90; RESP 18; TEMP 98
== END 2020-06-22 20:40 | disposition home or self-care (01) ==
LOC: EC 18:07
DX: R10.9 Unspecified abdominal pain (principal); F41.9 Anxiety disorder, unspecified; F32.9 Major depressive disorder, single episode, unspecified; Z79.899 Other long term (current) drug therapy; Z91.048 Other nonmedicinal substance allergy status
CPT/HCPCS: 36415; 80053; 83690; 85025; 81003; 99284; 96374; 96375; 96361; J2405; C9113

== ENCOUNTER 2020-07-06 17:50 | Emergency (ER) | payer OTHER ==
[2020-07-06 17:57] VITALS: RESP 18
--- NOTE | 2020-07-06 18:12 | ED ---
General Adult HPI - General Chief complaint: Extremity Injury, Lower Stated complaint: Ankle Pain Time Seen by Provider: 07/06/20 17:52 Source: patient, EMS, RN notes reviewed, old records reviewed Mode of arrival: EMS - History of Present Illness Initial comments: 24-year-old male presenting for evaluation of right ankle injury. He's been limping on his right ankle for approximately 2 weeks. He believes he had injured it by internal rotation approximately 2 weeks ago. He denies new injury but states he's had persistent pain. Denies fever or chills. Denies any swelling or erythema. He has no numbness or tingling. 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 He is following with orthopedics regarding this. - Related Data Home Medications Medication Instructions Recorded Confirmed Ergocalciferol [Vitamin D2] 50,000 unit PO Q14D 05/27/17 12/22/19 Montelukast [Singulair] 10 mg PO HS 08/17/17 12/22/19 Divalproex ER [Depakote ER] 1,000 mg PO HS 04/08/18 12/22/19 Fenofibrate 54 mg PO DAILY 02/20/19 12/22/19 Multivitamins, Thera [Multivitamin 1 tab PO DAILY 02/20/19 12/22/19 (formulary)] Cetirizine HCl [Zyrtec] 10 mg PO DAILY 08/08/19 12/22/19 Melatonin 5 mg PO HS 08/08/19 12/22/19 OLANZapine 20 mg PO HS 08/08/19 12/22/19 haloperidoL [Haldol] 10 mg PO BID 08/08/19 12/22/19 Albuterol Sulfate [Albuterol 2 puff PO RT-Q4H PRN 12/22/19 12/22/19 Sulfate Hfa] Calcium Polycarbophil [Fiber-Lax] 625 mg PO BID 12/22/19 12/22/19 Omeprazole [PriLOSEC] 20 mg PO DAILY 12/22/19 12/22/19 Previous Rx's Medication Instructions Recorded Ibuprofen 800 mg PO TID #20 tablet 06/21/20 Allergies Allergy/AdvReac Type Severity Reaction Status Date / Time pollen extracts AdvReac Itching Verified 06/22/20 18:42 Review of Systems ROS Statement: Those systems with pertinent positive or pertinent negative responses have been documented in the HPI. ROS Other: All systems not noted in ROS Statement are negative. Past Medical History Past Medical History: No Reported History Additional Past Medical History / Comment(s): CP, developmentally delayed,kidney stones History of Any Multi-Drug Resistant Organisms: None Reported Past Surgical History: No Surgical Hx Reported Past Psychological History: Anxiety, Depression Smoking Status: Never smoker Past Alcohol Use History: None Reported Past Drug Use History: None Reported General Exam General appearance: alert, in no apparent distress Head exam: Present: atraumatic, normocephalic Eye exam: Present: normal appearance, PERRL ENT exam: Present: normal exam Neck exam: Present: normal inspection. Absent: tenderness, meningismus Respiratory exam: Present: normal lung sounds bilaterally. Absent: respiratory distress, wheezes Cardiovascular Exam: Present: regular rate, normal rhythm GI/Abdominal exam: Present: soft. Absent: distended, tenderness, guarding Extremities exam: Present: normal inspection, tenderness (Tenderness over the lateral malleolus, right ankle. Distal pulses intact normal cap refill), normal capillary refill Neurological exam: Present: alert, oriented X3, CN II-XII intact. Absent: motor sensory deficit Psychiatric exam: Present: normal affect, normal mood Skin exam: Present: warm, dry, intact Course Vital Signs 07/06/20 17:53 Temperature 98.4 F Pulse Rate 107 H Respiratory 18 Rate Blood Pressure 142/80 O2 Sat by Pulse 100 Oximetry Procedures - Orthopedic Splinting/Casting Injury #1 Side: right Lower Extremity Injury Location: ankle Lower Extremity Immobilizer: Pavel wrap Medical Decision Making - Medical Decision Making 24-year-old male presenting with right ankle injury which occurred approximately 2 weeks ago. X-rays are repeated, negative for fracture dislocation, no acute findings. Patient is following with both podiatry and has an appointment within the next week as well as his primary care physician. He is placed in an Pavel wrap for support, he will attempt to elevate and ice the ankle as well as take Motrin for pain. 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 Disposition Clinical Impression: Right ankle sprain Disposition: HOME SELF-CARE Condition: Good Instructions (If sedation given, give patient instructions): Ankle Sprain (ED) Is patient prescribed a controlled substance at d/c from ED?: No Referrals: [facility] [Primary Care Provider] - 1-2 days Time of Disposition: 19:03
--- NOTE | 2020-07-06 18:43 | XR ---
EXAMINATION TYPE: XR tibia fibula RT DATE OF EXAM: 07/06/2020 COMPARISON: 03/09/2020 HISTORY: Fall. Pain. TECHNIQUE: 4 views FINDINGS: I see no fracture nor dislocation. Knee joint and ankle joint appear anatomic. Soft tissues appear normal. IMPRESSION: Negative right tibia and fibula exam. No change.
--- NOTE | 2020-07-06 18:48 | XR ---
EXAMINATION TYPE: XR ankle complete RT DATE OF EXAM: 07/06/2020 COMPARISON: NONE HISTORY: Pain TECHNIQUE: 3 views FINDINGS: I see no fracture nor dislocation. Ankle mortise is anatomic. Joint spaces are normal. IMPRESSION: Negative right ankle exam.
[2020-07-06 19:12] VITALS: BP 126/88; PULSE 80; TEMP 98.7
== END 2020-07-06 19:14 | disposition home or self-care (01) ==
LOC: EC 17:50
DX: S93.401A Sprain of unspecified ligament of right ankle, initial encounter (principal); F32.9 Major depressive disorder, single episode, unspecified; Z79.899 Other long term (current) drug therapy; Z79.890 Hormone replacement therapy; Z91.048 Other nonmedicinal substance allergy status; X58.XXXA Exposure to other specified factors, initial encounter
CPT/HCPCS: 29515; 99284